=== PATIENT | female | born 1990 | race Hispanic/Latino ===

== ENCOUNTER 2019-12-28 02:12 | Inpatient (IN) | payer OTHER, SELFPAY ==
[2019-12-28 02:50] LABS: Absolute Lymphocytes (CBC) 1.6 K/uL (0.7-4.9); Basophils % 0.9 % (0-1.3); Hematocrit 38.8 % (36.0-45.0); Lymphocytes % 17.1 % (15.3-44.8); MPV 8.6 fL (7.6-11.3); RBC Red Blood Cell Count 4.44 M/uL (3.86-4.86)
[2019-12-28 02:59] LABS: Urine Blood NEGATIVE (NEG); Urine Glucose NEGATIVE (NEG); Urine Protein TRACE (NEG); Urine Specific Gravity 1.025 (1.005-1.030); Urine pH 8.5 (5.0-7.0)
[2019-12-28] MEDS ORDERED: MORPHINE 4 MG/ML SYR ONE ×2 (03:01→04:50)
[2019-12-28] MEDS ORDERED: ONDANSETRON 4 MG/2 ML VIAL ONE ×2 (03:02→09:01)
[2019-12-28 03:32] LABS: ALT/SGPT 23 U/L (12-78); AST/SGOT 18 U/L (15-37); Albumin 4.1 g/dL (3.4-5.0); Alkaline Phosphatase 100 U/L (45-117); BUN Blood Urea Nitrogen 8 mg/dL (7-18); Bicarbonate 23 mmol/L (21-32); Bilirubin Direct < 0.1 mg/dL (0-0.2); Bilirubin Total 0.2 mg/dL (0.2-1.0); Glucose Level 103 mg/dL (74-106); Lipase 87 U/L (73-393); Potassium 3.3 mmol/L (3.5-5.1); Protein, Total 8.2 g/dL (6.4-8.2); Sodium Level 142 mmol/L (136-145)
[2019-12-28] MEDS ORDERED: NA CHLORIDE 0.9% 2,000 ML ONE (04:01)
[2019-12-28] MEDS ORDERED: CIPROFLOXACIN 400mg IV 400 MG/200 ML BAG IV ONE (04:01)
[2019-12-28] MEDS ORDERED: METRONIDAZOLE 500mg IVPB 500 MG/100 ML BAG IV ONE (04:02)
--- NOTE | 2019-12-28 04:42 | ER ---
Nurse's Notes [facility] Name: Carla Watt Age: 29 yrs Sex: Female : 1990 Arrival Date: 12/28/2019 Time: 02:14 Bed 17 Private MD: Diagnosis: Umbilical hernia with obstruction, without gangrene;Abdominal tenderness;Other intestinal obstruction-MECHANICAL sbo, secondary incarcerated umbilical hernia Presentation: 12/27 02:26 Chief complaint: Patient states: she was out at a [employer] party tonight and started having bb abdominal pain which is getting worse denies nausea, vomiting, or diarrhea. Coronavirus screen: At this time, the client does not indicate any symptoms associated with coronavirus-19. Ebola Screen: No symptoms or risks identified at this time. Initial Sepsis Screen: Does the patient meet any 2 criteria? No. Patient's initial sepsis screen is negative. Does the patient have a suspected source of infection? No. Patient's initial sepsis screen is negative. Risk Assessment: Do you want to hurt yourself or someone else? Patient reports no desire to harm self or others. Onset of symptoms was December 28, 2019. 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 - Social history:: Smoking status: unknown Patient uses alcohol, occasionally. - Family history:: not pertinent. Screenin:30 Abuse screen: Denies threats or abuse. Denies injuries from another. Nutritional wh screening: No deficits noted. Tuberculosis screening: No symptoms or risk factors identified. Fall Risk None identified. Assessment: 02:30 General: Appears in no apparent distress. uncomfortable, Behavior is calm, cooperative, wh appropriate for age. Pain: Complains of pain in umbilical area Pain does not radiate. Pain currently is 8 out of 10 on a pain scale. Pain began 3 hours ago. Is episodic. Neuro: Level of Consciousness is awake, alert, obeys commands, Oriented to person, place, time, situation, Appropriate for age. Cardiovascular: Heart tones S1 S2. Respiratory: Airway is patent Respiratory effort is even, unlabored, Respiratory pattern is regular, symmetrical, Breath sounds are clear bilaterally. GI: Abdomen is flat, Bowel sounds present X 4 quads. Abd is soft Abdomen is tender to palpation in umbilical area Mass noted in umbilical area. : No signs and/or symptoms were reported regarding the genitourinary system. EENT: No signs and/or symptoms were reported regarding the EENT system. Derm: Skin is intact, is healthy with good turgor, Skin is pink, warm \T\ dry. normal. Musculoskeletal: Circulation, motion, and sensation intact. 04:00 Reassessment: Patient appears in no apparent distress at this time. No changes from previously documented assessment. Patient and/or family updated on plan of care and expected duration. Pain level reassessed. Patient is alert, oriented x 3, equal unlabored respirations, skin warm/dry/pink. 04:35 Reassessment: MD at bedside trying to manipulate hernia back with no success, POC explained need for admission. 05:17 Reassessment: Patient appears in no apparent distress at this time. Patient and/or family updated on plan of care and expected duration. Pain level reassessed. Patient is alert, oriented x 3, equal unlabored respirations, skin warm/dry/pink. Vital Signs: 02:26 BP 156 / 93; Pulse 105; Resp 22 S; Temp 98.1(O); Pulse Ox 100% on R/A; Weight 84.82 kg bb (R); Height 5 ft. 4 in. (162.56 cm) (R); Pain 9/10; 03:30 BP 111 / 74; Pulse 89; Resp 16; Pulse Ox 98% on R/A; wh 04:21 BP 117 / 73; Pulse 87; Resp 18; Pulse Ox 98% on R/A; wh 05:17 BP 127 / 85; Pulse 85; Resp 18; Pulse Ox 98% on R/A; 02:26 Body Mass Index 32.10 (84.82 kg, 162.56 cm) ED Course: 02:14 Patient arrived in ED. am2 02:27 Elver Jiang MD is Attending Physician. [facility] 02:28 Triage completed. 02:28 James Otoole is Primary Nurse. 02:29 Arm band placed on Patient placed in an exam room, on a stretcher, on pulse oximetry. bb 02:45 Patient has correct armband on for positive identification. Placed in gown. Bed in low wh position. Call light in reach. Side rails up X 1. Pulse ox on. NIBP on. 02:50 Inserted saline lock: 20 gauge in right antecubital area, using aseptic technique. Blood collected. 04:38 CT Abd/Pelvis - IV Contrast Only In Process Unspecified. EDMS 04:40 David Asif MD is Hospitalizing Provider. [facility] 05:16 No provider procedures requiring assistance completed. Patient admitted, IV remains in place. Administered Medications: 02:58 Drug: morphine 2 mg {Note: RASS 0.} Route: IVP; Site: right antecubital; 03:00 Drug: Zofran (Ondansetron) 4 mg Route: IVP; Site: right antecubital; 03:52 Follow up: Response: No adverse reaction; Nausea is decreased 03:31 Drug: morphine 2 mg {Note: RASS 0.} Route: IVP; Site: right antecubital; 03:52 Follow up: Response: No adverse reaction; Pain is decreased; RASS: Alert and Calm (0) 04:16 Drug: Flagyl 500 mg Volume: 100 ml; Route: IVPB; Rate: 200 ml/hr; Infused Over: 30 wh mins; Site: right antecubital; 04:50 Follow up: Response: No adverse reaction; IV Status: Completed infusion 04:16 Drug: NS 0.9% 1000 ml Route: IV; Rate: 1 bolus; Site: right antecubital; 05:08 Follow up: Response: No adverse reaction; IV Status: Completed infusion 04:35 Drug: morphine 4 mg {Note: RASS 0.} Route: IVP; Site: right antecubital; 05:07 Follow up: Response: No adverse reaction; Pain is decreased; RASS: Alert and Calm (0) 04:43 Drug: Cipro 400 mg Volume: 200 ml; Route: IVPB; Infused Over: 60 mins; Site: right antecubital; 05:08 Follow up: Response: No adverse reaction; IV Status: Infusion continued upon admission 05:08 Drug: NS 0.9% 1000 ml Route: IV; Rate: 125 ml/hr; Site: right antecubital; 05:08 Follow up: IV Status: Infusion continued upon admission Outcome: 04:41 Decision to Hospitalize by Provider. marianela 05:16 Admitted to Med/surg accompanied by tech, via stretcher, room 229, with chart, Report called to Helen Warren RN 05:16 Condition: stable 05:16 Instructed on the need for admit. 05:23 Patient left the ED. Signatures: Dispatcher [employer] Elver Guerrier MD MD cha Ballard, Brenda, RN RN Danika Bojorquez Winsy
--- NOTE | 2019-12-28 04:42 | EDPHYS ---
Physician Documentation [facility] Name: Carla Watt Age: 29 yrs Sex: Female : 1990 Arrival Date: 12/28/2019 Time: 02:14 Bed 17 Private MD: ED Physician Elver Jiang HPI: 12/27 03:36 This 29 yrs old Female presents to ER via Ambulatory with complaints of marianela Abdominal Pain. 03:36 The patient presents with abdominal pain in the periumbilical area. Onset: The marianela symptoms/episode began/occurred just prior to arrival. The symptoms do not radiate. Associated signs and symptoms: none. The symptoms are described as burning, constant. Modifying factors: The symptoms are alleviated by nothing, the symptoms are aggravated by movement. Severity of pain: At its worst the pain was moderate in the emergency department the pain is unchanged. The patient has not experienced similar symptoms in the past. 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 - Social history:: Smoking status: unknown Patient uses alcohol, occasionally. - Family history:: not pertinent. ROS: 03:36 Constitutional: Negative for fever, chills, and weight loss, Eyes: Negative for injury, marianela pain, redness, and discharge, ENT: Negative for injury, pain, and discharge, Neck: Negative for injury, pain, and swelling, Cardiovascular: Negative for chest pain, palpitations, and edema, Respiratory: Negative for shortness of breath, cough, wheezing, and pleuritic chest pain, Back: Negative for injury and pain, : Negative for injury, bleeding, discharge, and swelling, MS/Extremity: Negative for injury and deformity, Skin: Negative for injury, rash, and discoloration, Neuro: Negative for headache, weakness, numbness, tingling, and seizure, Psych: Negative for depression, anxiety, suicide ideation, homicidal ideation, and hallucinations, Allergy/Immunology: Negative for hives, rash, and allergies, Endocrine: Negative for neck swelling, polydipsia, polyuria, polyphagia, and marked weight changes, Hematologic/Lymphatic: Negative for swollen nodes, abnormal bleeding, and unusual bruising. 03:36 Abdomen/GI: Positive for abdominal pain, of the umbilical area. Exam: 03:36 Constitutional: This is a well developed, well nourished patient who is awake, alert, marianela and in no acute distress. Head/Face: Normocephalic, atraumatic. Eyes: Pupils equal round and reactive to light, extra-ocular motions intact. Lids and lashes normal. Conjunctiva and sclera are non-icteric and not injected. Cornea within normal limits. Periorbital areas with no swelling, redness, or edema. ENT: Nares patent. No nasal discharge, no septal abnormalities noted. Tympanic membranes are normal and external auditory canals are clear. Oropharynx with no redness, swelling, or masses, exudates, or evidence of obstruction, uvula midline. Mucous membranes moist. Neck: Trachea midline, no thyromegaly or masses palpated, and no cervical lymphadenopathy. Supple, full range of motion without nuchal rigidity, or vertebral point tenderness. No Meningismus. Chest/axilla: Normal chest wall appearance and motion. Nontender with no deformity. No lesions are appreciated. Cardiovascular: Regular rate and rhythm with a normal S1 and S2. No gallops, murmurs, or rubs. Normal PMI, no JVD. No pulse deficits. Respiratory: Lungs have equal breath sounds bilaterally, clear to auscultation and percussion. No rales, rhonchi or wheezes noted. No increased work of breathing, no retractions or nasal flaring. Back: No spinal tenderness. No costovertebral tenderness. Full range of motion. Female : Normal external genitalia. Skin: Warm, dry with normal turgor. Normal color with no rashes, no lesions, and no evidence of cellulitis. MS/ Extremity: Pulses equal, no cyanosis. Neurovascular intact. Full, normal range of motion. Neuro: Awake and alert, GCS 15, oriented to person, place, time, and situation. Cranial nerves II-XII grossly intact. Motor strength 5/5 in all extremities. Sensory grossly intact. Cerebellar exam normal. Normal gait. Psych: Awake, alert, with orientation to person, place and time. Behavior, mood, and affect are within normal limits. 03:36 Abdomen/GI: Inspection: abdomen appears normal, Bowel sounds: normal, Palpation: moderate abdominal tenderness, in the umbilical area, Liver: no appreciated palpable abnormalities, Hernia: noted in the umbilical area, incarceration, that is moderate, tenderness, that is moderate, that is severe, bowel sounds are appreciated on auscultation. Vital Signs: 02:26 BP 156 / 93; Pulse 105; Resp 22 S; Temp 98.1(O); Pulse Ox 100% on R/A; Weight 84.82 kg bb (R); Height 5 ft. 4 in. (162.56 cm) (R); Pain 9/10; 03:30 BP 111 / 74; Pulse 89; Resp 16; Pulse Ox 98% on R/A; wh 04:21 BP 117 / 73; Pulse 87; Resp 18; Pulse Ox 98% on R/A; wh 05:17 BP 127 / 85; Pulse 85; Resp 18; Pulse Ox 98% on R/A; wh 02:26 Body Mass Index 32.10 (84.82 kg, 162.56 cm) MDM: 02:27 Patient medically screened. [facility] 03:38 Differential diagnosis: non-specific abd pain, incarcerated hernia. Data reviewed: [facility] vital signs, nurses notes, lab test result(s), radiologic studies, CT scan. 04:49 Data interpreted: digital imaging technician: rate is 87 beats/min, rhythm is regular, Pulse marianela oximetry: on room air is 98 %. Test interpretation: by ED physician or midlevel provider: ct abd/pelvis. ED course: exp[lained labs and ct to patient, moe benites, will admit and plan on OR THIS MORNING. 05:16 ED course: two attemps to reduce hernia, no success, moe benites, or at 9am, patsy bear informed. 12/27 02:28 Order name: Basic Metabolic Panel; Complete Time: 03:35 [facility] 12/27 02:28 Order name: CBC with Diff; Complete Time: 03:35 [facility] 12/27 02:28 Order name: Hepatic Function; Complete Time: 03:35 [facility] 12/27 02:29 Order name: Lipase; Complete Time: 03:35 [facility] 12/27 02:55 Order name: Urine Dipstick--Ancillary (enter results) [facility] 12/27 02:55 Order name: Urine --Ancillary (enter results) [facility] 12/27 02:29 Order name: CT Abd/Pelvis - IV Contrast Only [facility] 12/27 02:55 Order name: Urine Dipstick-Ancillary; Complete Time: 03:35 [facility] 12/27 02:56 Order name: Urine --Ancillary; Complete Time: 03:35 [facility] 12/27 04:50 Order name: COVID-19 12/27 05:22 Order name: CORONAVIRUS [facility] 12/27 02:29 Order name: IV Saline Lock; Complete Time: 03:00 [facility] 12/27 02:29 Order name: Labs collected and sent; Complete Time: 03:00 [facility] 12/27 02:29 Order name: Urine Dipstick-Ancillary (obtain specimen); Complete Time: 02:55 [facility] 12/27 02:29 Order name: Urine Test (obtain specimen); Complete Time: 02:55 [facility] Administered Medications: 02:58 Drug: morphine 2 mg {Note: RASS 0.} Route: IVP; Site: right antecubital; 03:00 Drug: Zofran (Ondansetron) 4 mg Route: IVP; Site: right antecubital; 03:52 Follow up: Response: No adverse reaction; Nausea is decreased 03:31 Drug: morphine 2 mg {Note: RASS 0.} Route: IVP; Site: right antecubital; 03:52 Follow up: Response: No adverse reaction; Pain is decreased; RASS: Alert and Calm (0) 04:16 Drug: Flagyl 500 mg Volume: 100 ml; Route: IVPB; Rate: 200 ml/hr; Infused Over: 30 wh mins; Site: right antecubital; 04:50 Follow up: Response: No adverse reaction; IV Status: Completed infusion 04:16 Drug: NS 0.9% 1000 ml Route: IV; Rate: 1 bolus; Site: right antecubital; 05:08 Follow up: Response: No adverse reaction; IV Status: Completed infusion 04:35 Drug: morphine 4 mg {Note: RASS 0.} Route: IVP; Site: right antecubital; 05:07 Follow up: Response: No adverse reaction; Pain is decreased; RASS: Alert and Calm (0) 04:43 Drug: Cipro 400 mg Volume: 200 ml; Route: IVPB; Infused Over: 60 mins; Site: right antecubital; 05:08 Follow up: Response: No adverse reaction; IV Status: Infusion continued upon admission 05:08 Drug: NS 0.9% 1000 ml Route: IV; Rate: 125 ml/hr; Site: right antecubital; 05:08 Follow up: IV Status: Infusion continued upon admission Disposition: 12/28/19 04:41 Hospitalization ordered by David Benites for Observation. Preliminary diagnosis are Umbilical hernia with obstruction, without gangrene, Abdominal tenderness, Other intestinal obstruction - MECHANICAL sbo, secondary incarcerated umbilical hernia. - Bed requested for Telemetry/MedSurg (observation). - Status is Observation. - Condition is Fair. - Problem is new. - Symptoms are unchanged. Signatures: Dispatcher [employer] EDElver Diggs MD MD cha Ballard, Brenda, RN RN Patsy Beauchamp RN RN James Wilhelm Corrections: (The following items were deleted from the chart) 05:06 04:41 Hospitalization Ordered by David Benites MD for Observation. Preliminary diagnosis cg is Umbilical hernia with obstruction, without gangrene; Abdominal tenderness. Bed requested for Telemetry/MedSurg (observation). Status is Observation. Condition is Fair. Problem is new. Symptoms are unchanged. marianela 05:16 05:06 12/28/2019 04:41 Hospitalization Ordered by David Benites MD for Observation. [facility] Preliminary diagnosis is Umbilical hernia with obstruction, without gangrene; Abdominal tenderness. Bed requested for Telemetry/MedSurg (observation). Status is Observation. Condition is Fair. Problem is new. Symptoms are unchanged. cg 05:23 05:16 12/28/2019 04:41 Hospitalization Ordered by David Benites MD for Observation. Preliminary diagnosis is Umbilical hernia with obstruction, without gangrene; Abdominal tenderness; Other intestinal obstruction - MECHANICAL sbo, secondary incarcerated umbilical hernia. Bed requested for Telemetry/MedSurg (observation). Status is Observation. Condition is Fair. Problem is new. Symptoms are unchanged. marianela
[2019-12-28 05:46] VITALS: BMI 31.8
[2019-12-28] MEDS ORDERED: ACETAMINOPHEN 500 MG TAB PO PRN (06:03)
[2019-12-28] MEDS ORDERED: MORPHINE 4 MG/ML SYR IV PRN (06:03)
[2019-12-28] MEDS ORDERED: ONDANSETRON 4 MG/2 ML VIAL IV PRN ×2 (06:03→10:49)
[2019-12-28] MEDS: D5.45NS W/KCL 20MEQ 20 MEQ/1,000 ML BAG IV SCH ×3 (06:45→22:03)
[2019-12-28] MEDS: FAMOTIDINE 20 MG/2 ML VIAL IV SCH ×2 (08:08→20:10)
[2019-12-28] MEDS ORDERED: Ringers Lactate 1,000 ML IV ONE (08:44)
[2019-12-28] MEDS ORDERED: SUCCINYLCHOLINE 20 MG/ML (10 ML) IV ONE (09:11)
[2019-12-28] MEDS ORDERED: propofoL 200 MG/20 ML VIAL IV ONE (09:13)
[2019-12-28] MEDS ORDERED: FENTANYL CITR 100 MCG/2 ML ONE ×2 (09:13→09:44)
[2019-12-28] MEDS ORDERED: MIDAZOLAM HCL 2 MG/2 ML INJ ONE (09:13)
[2019-12-28] MEDS ORDERED: ROCURONIUM 50 MG/5 ML VIAL IV ONE (09:40)
--- NOTE | 2019-12-28 10:18 | P.OP ---
Steel Rigger: Fernando COULTER Preoperative diagnosis: Incarcerated umbilical hernia Postoperative diagnosis: same Primary procedure: Lap Repair Incarcerated Umbilical Hernia Anesthesia: General Estimated blood loss: min Specimen: Hernia sac Findings: as above Complications: None Transferred to: Recovery Room Condition: Good
[2019-12-28] MEDS ORDERED: GLYCOPYRROLATE 0.2 MG/ML SYR ONE (10:25)
[2019-12-28] MEDS ORDERED: NEOSTIGMINE 1 MG/ML -5 ML ONE (10:25)
[2019-12-28] MEDS ORDERED: HYDROMORPHONE HCL 1 MG/ML INJ IV PRN ×2 (10:49→11:08)
[2019-12-28] MEDS ORDERED: KETOROLAC 30 MG/ML INJ ONE (11:06)
[2019-12-28] MEDS ORDERED: PROMETHAZINE INJ 25 MG/ML AMP ONE (11:19)
[2019-12-28] MEDS: METRONIDAZOLE 500mg IVPB 500 MG/100 ML BAG IV SCH ×3 (11:55→23:49)
[2019-12-28] MEDS ORDERED: INFLUENZA VACCINE (for 3y+) 0.5 ML DOSE IMVAC ONE (12:00)
--- NOTE | 2019-12-28 12:36 | PREOPHP ---
Date of Admission: 12/28/2019 Reason For Admission: Abdominal pain. History Of Present Illness: The patient is a 29-year-old female, who awoke at midnight with acute on set of periumbilical pain. Had 1 episode of vomiting. Has nausea and no diarrhea or constipation. No blood in her stool. Last bowel movement yesterday, has not passed any gas since the pain started. Never had this kind of pain before. No sore throat, runny nose, cough, headaches, or dizziness. N o chest pain. No fever or chills. No dysuria or hematuria. Review of Systems: Otherwise unremarkable. Past Medical History: Asthma. Past Surgical History: Negative. Allergies: NO ALLERGIES. Social History: The patient does not smoke. Drinks occasionally. Family History: Noncontributory. Physical Examination: Vital Signs: Stable. She is currently afebrile. General: She is awake, alert, and oriented x3. Head and Neck: Cranial nerves 2 through 12 are grossly within normal limits. No neck masses. No JV D. Throat clear. Neck is supple. Chest: Clear. Heart: S1, S2. Abdomen: Soft. Mild distention. Hypoactive bowel sounds. In the supraumbilical region, there is a mass approximately 4 x 6 cm tense, not reducible. There is no erythema. Tender. Extremity: Adequately perfused. Nontender. Neuro: Nonfocal. Laboratory Data: Reviewed. Her potassium is slightly low that was replaced, otherwise is unremarkab le. Her H and H, WBC, and platelets are within normal limits. There is slight left shift. CT of th e abdomen and pelvis reviewed which is consistent with mechanical small bowel obstruction with proxim al dilatation and distal collapse of the small bowel, which is incarcerated into the hernia. Assessment: Incarcerated umbilical hernia. Plan: Admit n.p.o., IV fluid, IV antibiotics and to the OR for laparoscopic-assisted repair of incar cerated umbilical hernia. The patient and understand the risks, benefits, alternatives and a greed to procedure. /MODL Voice ID: [id number]
--- NOTE | 2019-12-28 14:11 | OP ---
Date of Procedure: 12/28/2019 Surgeon: David Asif MD Mounter Clarinets: MARYLIN Reddy. Preoperative Diagnosis: Incarcerated umbilical hernia. Postoperative Diagnosis: Incarcerated umbilical hernia. Procedure: Laparoscopic repair of incarcerated umbilical hernia. Estimated Blood Loss: Minimal. Specimen: Hernia sac. Findings: As above. Anesthesia: General. Complications: None. Disposition: The patient tolerated the procedure in stable condition, taken to Recovery in good gene ral condition. Description Of Procedure: The patient was brought to the OR and placed in supine position. General anesthesia begun. The patient was prepped and draped in usual sterile fashion. Marcaine 0.5% was in filtrated locally. A 15 blade was used to make a 1 cm left upper quadrant incision. Subcutaneous ti ssue was divided. Fascia was identified and divided. #1 Vicryl stay suture was placed. Peritoneal cavity was entered with sharp and blunt dissection. 12 mm trocar was placed into the peritoneal cavi ty under direct vision. Pneumoperitoneum was established. Then, 5 mm trocar was placed in the left lower quadrant. Laparoscopy revealed incarcerated small bowel into and a small defect just above the umbilicus with some falciform ligament and fat associated with it incarcerated well. The falciform ligament was divided with gentle pressure. The small bowel was reduced from the hernia into the pal toneal cavity was examined carefully. There was proximal dilatation and distal collapse which improv ed immediately upon reduction of the hernia. There was some bruising of the serosa but there was no ecchymoses no evidence of any vascular compromise of the bowel that was present. It was healthy and had motility. Subsequently, a 4 cm incision was made above the umbilicus. Subcutaneous tissue was d ivided. Fascia was identified. A large hernia sac with fat was present as well which was excised do wn to the fascia. Defect remained was approximately 2.5 cm in diameter. Ventralex medium sized plug was placed into the peritoneal cavity and then #1 PDS was used to close the fascia and tied the mesh to the fascia. The pneumoperitoneum was reestablished and the mesh was secured to the peritoneal garcia rface with tacker. A complete coverage with 3 cm borders around the hernia defect was easily accompl ished and then all trocars were removed under direct vision after there was no evidence of bowel inju ry or bleeding noted. Subsequently, stay sutures were tied to each other to reapproximate the fascia l defect. Subcutaneous wounds were irrigated. Bleeding controlled with cautery and then 2-0 chromic and 3-0 chromic were used to approximate the subcutaneous tissue and closed the skin. Sterile dress ing was applied. The patient was awakened and taken to Recovery in good general condition. NEHEMIAS/KEIRA Voice ID: [id number] Report ID: [id number]
[2019-12-28] MEDS: CIPROFLOXACIN 400mg IV 400 MG/200 ML BAG IV SCH (16:15)
[2019-12-28] MEDS: HYDROCODONE/APAP 7.5/325 MG TAB PO PRN ×2 (17:30→23:49)
[2019-12-29] MEDS: D5.45NS W/KCL 20MEQ 20 MEQ/1,000 ML BAG IV SCH (04:56)
[2019-12-29] MEDS: CIPROFLOXACIN 400mg IV 400 MG/200 ML BAG IV SCH (04:56)
[2019-12-29] MEDS: METRONIDAZOLE 500mg IVPB 500 MG/100 ML BAG IV SCH (06:09)
[2019-12-29 06:36] LABS: Absolute Lymphocytes (CBC) 1.4 K/uL (0.7-4.9); Basophils % 0.7 % (0-1.3); Hematocrit 34.5 % (36.0-45.0); Lymphocytes % 21.2 % (15.3-44.8); MPV 8.9 fL (7.6-11.3); RBC Red Blood Cell Count 3.88 M/uL (3.86-4.86)
[2019-12-29 06:56] LABS: BUN Blood Urea Nitrogen 3 mg/dL (7-18); Bicarbonate 27 mmol/L (21-32); Glucose Level 106 mg/dL (74-106); Magnesium 1.8 mg/dL (1.8-2.4); Potassium 3.5 mmol/L (3.5-5.1); Sodium Level 141 mmol/L (136-145)
[2019-12-29] MEDS: FAMOTIDINE 20 MG/2 ML VIAL IV SCH (08:28)
[2019-12-29] MEDS: HYDROCODONE/APAP 7.5/325 MG TAB PO PRN (08:29)
[2019-12-29] MEDS ORDERED: MAGNESIUM SULFATE 1 gm IVPB 1 GM/100 ML BAG IV ONE (09:00)
[2019-12-29] MEDS ORDERED: POTASSIUM CL SA 10 MEQ TAB PO ONE (09:00)
[2019-12-29 09:47] VITALS: O2SAT 97
--- NOTE | 2019-12-29 11:13 | DS ---
Date of Discharge: 12/29/2019 Admitting Diagnosis: Incarcerated umbilical hernia. Discharge Diagnosis: Incarcerated umbilical hernia. Procedure Performed: Laparoscopic repair of incarcerated umbilical hernia. Hospital Course: The patient is a 29-year-old female, who underwent the aforementioned procedure. P ostoperatively, she is tolerating diet, ambulating, pain controlled with p.o. pain medication, afebri le. The patient will be discharged to home. Disposition: Home. Condition: Stable. Discharge Instructions: Resume home medications and diet. Activity as tolerated. No heavy lifting. Remove outer dressing in a.m. and shower. Keep wound clean and dry. Keep Steri-Strips on at all t imes. Follow up in my office 1-2 weeks. Call for appointment. Tylenol No.3 one tablet p.o. q.4 p.r .n. and incentive spirometry as ordered. /MODL Voice ID: [id number] Report ID: [id number]
[2019-12-29 12:30] VITALS: BP 108/57; TEMP 97.4
--- NOTE | 2019-12-31 12:17 | RAD REPORT ---
EXAM DESCRIPTION: CT - Abdomen Pelvis W Contrast - 12/28/2019 6:47 am ADDENDUM #1 Urgent finding reported to Dr. Jiang at 12/28/2019 5:20 AM CDT Electronically signed by: Lorne Mackey 12/28/2019 6:22 AM CDT End of Addendum EXAM DESCRIPTION: CT ABDOMEN AND PELVIS WITH CONTRAST CLINICAL HISTORY: ABD PAIN COMPARISON: None Available. TECHNIQUE: CT of the abdomen and pelvis performed following IV administration of iodinated contras t. FINDINGS: Lung Bases: The visualized lung bases are clear. Bones: No destructive bone lesions identified. Abdomen: Liver: The liver has normal size and density. No intrahepatic biliary dilatation. Gallbladder: No calcified gallstones. Spleen, Pancreas, and Adrenal Glands: The spleen, pancreas, and adrenal glands are unremarkable. Kidneys: No hydronephrosis or obstructing calculus. Vasculature: The aorta and IVC have normal caliber and position. The portal vein is patent. The pro ximal visceral and renal arteries are patent. Stomach: The stomach and duodenum have normal course. Other: No free intraperitoneal air. No free fluid or lymphadenopathy. Pelvis: Bladder: Urinary bladder is unremarkable. Bowel: Dilated loops of proximal small bowel. Dilated loops in an umbilical hernia. Loops of bowel distal to the umbilical hernia are decompressed. Appendix: Normal appendix. Pelvis: Uterus is not enlarged. IMPRESSION: 1. Mechanical small bowel obstruction on the basis an incarcerated umbilical hernia cont aining dilated loop of small bowel. Transition to decompressed small bowel at the exit of the umbilic al hernia. This exam was performed according to our departmental dose-optimization program, which includes autom ated exposure control, adjustment of the mA and/or kV according to patient size and/or use of iterati ve reconstruction technique. Electronically signed by: Lorne Mackey 12/28/2019 5:09 AM CDT Due to temporary technical issues with the PACS/Fluency reporting system, reports are being signed by the in house radiologist without review as a courtesy to ensure prompt reporting. The interpreting r adiologist is fully responsible for the content of the report.
== END 2019-12-29 11:54 | disposition home or self-care (01) | DRG 355 ==
LOC: ER 02:12 → OBSVTOIN 04:42 → ERHOLD 04:42 → 2ND 05:17
PROVIDERS: ADMIT Surgery; ATTEND Surgery
PROC: 0WUF0JZ Supplement Abdominal Wall with Synthetic Substitute, Open Approach (ICD-10-PCS; principal; 2019-12-28 09:00)
DX: K42.0 Umbilical hernia with obstruction, without gangrene (principal); Z20.828 Contact with and (suspected) exposure to other viral communicable diseases
CPT/HCPCS: 36415; 74177; 80048; 80076; 81003; 81025; 83690; 83735; 84100; 84132; 85025; 88302; 94010; 96365; 96375; 99285; J0330; J0744; J2250; J2405; J2550; J2704; J2710; J3010; J3475; J7030; J7120; Q9967; U0003

== ENCOUNTER 2022-05-16 21:15 | Emergency (ER) | payer OTHER ==
--- OUTSIDE RECORDS SUMMARY | 2022-05-16 21:19 | XMS REPORT | Continuity of Care Document ---
:1990 Author Organization [facility] t Address [address] [place] [address] Care Team Providers Name Role Phone PCP, PATIENT DOES NOT HAVE A Primary Care Physician UnavailTHERESA De La Cruz Attending Clinician Unavailable 2, Adc Lab Attending Clinician Unavailable Theresa Trujillo PA-C Attending Clinician Doctor Unassigned, [place] Attending Clinician Unavailable Cecilia Vanessa MD Attending Clinician CECILIA VANESSA Attending Clinician Unavailable Payers Payer Name Policy Type Policy Number Effective Date Expiration Date S ource Problems Condition Condition Condition Status Onset Resolution Last Treating Co mments Source Name Details Category Date Date Treatment Clinician Date ASCUS with ASCUS with Disease Active U nivers positive positive 3-14 ity of [place] 00 [place] cervical cervical Branch Obesity Obesity Disease Active Univers (BMI (BMI 2-04 ity of 30-39.9) 30-39.9) 00:00: [place] [address] Medical Branch Allergies, Adverse Reactions, Alerts Allergy Allergy Status Severity Reaction(s) Onset Inactive Treating Comm ents Source Name Type Date Date Clinician NO KNOWN Drug Active Univers ALLERGIE Class ity of [facility] Social History Social Habit Start Date Stop Date Quantity Comments Source History SDOH University o f Alcohol Frequency [place] [facility] History SDWV University o f Alcohol Std [place] [facility] History SDWV University o f Alcohol Binge [place] [facility] Exposure to 2022-04-24 2022-05-04 Not sure University SARS-CoV-2 00:00:00 08:46:00 [facility] (event) [place] Tobacco use and 2022-05-04 2022-05-04 Smokeless tobacco Un iversity of exposure 00:00:00 00:00:00 non-user [facility] Alcohol intake 2022-05-04 2022-05-04 Current drinker Unive rsity of 00:00:00 00:00:00 of alcohol [facility] (finding) [place] Alcohol Comment 2020-04-30 2020-04-30 Socially Universit y of 00:00:00 00:00:00 [facility] Sex Ass[birth year] At [birth year] Universit y of 00:00:00 00:00:00 [facility] Smoking Status Start Date Stop Date Source Never smoked tobacco [facility] Medications Ordered Filled Start Stop Current Ordering Indication Dosage Frequency Signature Comments Components Source Medication Medication Date Date Medication? Clinician (SIG) Name Name No known No Univers medications 4-06 ity of 17:03: [address] No known No Univers medications 4-06 ity of 17:03: [address] No known No Univers medications 4-06 ity of 17:03: [address] No known No Univers medications 4-06 ity of 17:03: [address] Vital Signs Vital Name Observation Time Observation Value Comments Source Systolic blood 2022-05-04 14:59:00 122 mm[Hg] Univer sity of pressure [facility] Diastolic blood 2022-05-04 14:59:00 75 mm[Hg] Unive rsity of pressure [facility] Heart rate 2022-05-04 14:59:00 69 /min [facility] Body temperature 2022-05-04 14:59:00 36.94 Neli [facility] Res[facility] rate 2022-05-04 14:59:00 18 /min [facility] Body height 2022-05-04 14:59:00 162.6 cm [facility] Body weight 2022-05-04 14:59:00 70.761 kg [facility] BMI 2022-05-04 14:59:00 26.78 kg/m2 [facility] Systolic blood 2021-06-30 21:08:00 128 mm[Hg] Univer sity of pressure [facility] Diastolic blood 2021-06-30 21:08:00 86 mm[Hg] Unive rsity of pressure [facility] Heart rate 2021-06-30 21:08:00 80 /min [facility] Body temperature 2021-06-30 21:08:00 36.83 Neli [facility] Respiratory rate 2021-06-30 21:08:00 18 /min [facility] Body height 2021-06-30 21:08:00 162.6 cm [facility] Body weight 2021-06-30 21:08:00 73.936 kg [facility] BMI 2021-06-30 21:08:00 27.98 kg/m2 [facility] Procedures Procedure Date / Time Performed Performing Clinician [facility] ASSIGNMENT OF BENEFITS 2022-05-04 14:47:02 Doctor Unassigned, No [facility] Branch DISCLOSURE AND 2021-06-30 05:01:00 Doctor Unassigned, No [facility] CONSENT, MEDICAL AND Name [facility] SURGICAL PROCEDURES POCT TEST 2021-06-30 00:00:00 Cecilia Vanessa [facility] DISCLOSURE AND 2021-06-07 05:01:00 Doctor Unassigned, No [facility] CONSENT, MEDICAL AND Name [facility] SURGICAL PROCEDURES Encounters Start End Encounter Admission Attending Care Care Encounter Source Date/Time Date/Time Type Type Clinicians Facility Department ID 2022-05-04 2022-05-04 Busgirl 2, Adc Lab [facility] [id number] [facility] 10:15:00 10:30:00 Visit Theresa Trujillo [id number] [place] [id number] Christopher LAN [id number] [address] 2022-05-04 2022-05-04 Outpatient R [facility] [id number] [facility] 09:00:00 09:51:47 THERESA yin [facility] 2022-05-04 2022-05-04 Office Lauren [facility] [id number] Univers 09:00:00 09:51:47 Visit Theresa LATOSHA [id number] i ty [id number] [phone] [address] 2022-05-04 2022-05-04 Orders Doctor BUCK [id number] Univers 00:00:00 00:00:00 Only Unassigned, HAO [id number] ity of [facility] [id number] Ko as [id number] [address] 2021-07-06 2021-07-06 Telephone Cecilia Vanessa [facility] [id number] Univers 00:00:00 00:00:00 Gordon REINA [id number] i ty [id number] [id number] [address] 2021-06-30 2021-06-30 Office Otf [facility] [id number] Univers 15:30:00 16:50:08 Visit Gordon REINA [id number] i ty [id number] [id number] [address] 2021-06-30 2021-06-30 Outpatient R [facility] [id number] Univers 15:30:00 16:50:08 ity [facility] 2021-06-30 2021-06-30 Outpatient R OTF [facility] [id number] Univers 15:30:00 15:30:00 ity [facility] 2021-06-30 2021-06-30 Outpatient Lana VANESSA [facility] [id number] Univers 15:30:00 15:30:00 ity [facility] 2021-06-30 2021-06-30 Orders Doctor BUCK [id number] Univers 00:00:00 00:00:00 Only Unassigned, HAO [id number] ity of [place] [facility] [id number] Ko as [phone] [address] 2021-06-07 2021-06-07 Outpatient R OTF [facility] [id number] Univers 08:00:00 08:29:42 ity of [facility] 2021-06-07 2021-06-07 Office Otf [facility] [id number] Univers 08:00:00 08:29:42 Visit Gordon REINA [id number] i ty [facility] 4.2.7.2.[place] [id number] [address] 2021-06-07 2021-06-07 Outpatient R OTF [facility] [id number] Univers 08:00:00 08:29:42 ity of [facility] 2021-06-07 2021-06-07 Orders Doctor BUCK [id number] Univers 00:00:00 00:00:00 Only Unassigned, HAO [id number] ity of [place] [facility] 4.2.7.2.686 Ko as [id number] [address] 2021-05-04 2021-05-04 Joaquin Trujillo [facility] [id number] Univers 00:00:00 00:00:00 Management Theresa REINA [id number] ity of [facility] [id number] [id number] [address] 2021-05-04 2021-05-04 Case ABBE Trujillo [id number] Univers 00:00:00 00:00:00 Management Theresa PEDIATRIC [id number] [id number] [id number] [address] CLINIC 2021-05-03 2021-05-03 Outpatient R [facility] [id number] Univers 10:00:00 10:00:00 THERESA [facility] 2021-05-03 2021-05-03 Busgirl 2, Adc Lab [facility] [id number] Univers 10:00:00 10:00:00 Visit Theresa Trujillo [id number] ity [id number] [phone] [facility] [address] [facility] 2021-05-03 2021-05-03 Office Lauren [facility] [id number] Univers 09:00:00 09:42:25 Visit Theresa REINA [id number] i ty [id number] [id number] [address] 2021-05-03 2021-05-03 Outpatient R [facility] [id number] Univers 09:00:00 [facility]42:[facility] 2021-05-03 2021-05-03 Orders Doctor HEBER [id number] Univers 00:00:00 00:00:00 Only Unassigned, HAO 350.1.13.10 [facility] [id number] Ko as [id number] [address] 2020-12-07 2020-12-07 [facility] [id number] Univers 15:02:21 15:27:48 Visit Theresa [place] 350.1.13.10 i ty of [place] [id number] [address] 2020-12-07 2020-12-07 Outpatient Lana [facility]ILLO [facility] [id number] Univers 15:00:00 15:00:00 [facility] 2020-06-18 2020-06-18 Outpatient CECILIA [facility]AGONER [facility] [id number] Univers 13:30:00 13:30:00 itkaylee [facility] 2020-04-30 2020-04-30 Outpatient R [facility] [id number] Univers 09:30:00 09:30:00 THERESA yin [facility] Results Test Description Test Time Test Comments Results Result Comments Source POCT TEST 2021-06-30 21:07:00 Test Item Value Reference Range Interpretation Comme nts POCT PREG (test code = 1605) Negative On board controls acceptable with C Line (test code = 3574) Yes POCT PREG LOT # (test code = 3575) POCT PREG TEST DATE (test code = 3576) [facility]
[2022-05-16 21:52] LABS: Urine Blood Trace-intact (Negative); Urine Glucose Trace (Negative); Urine Protein 2+ (Negative); Urine pH 6.5 (5.0-7.0)
[2022-05-16 22:10] LABS: Urine Bacteria None Seen /HPF (<20); Urine Bilirubin 2+ (Negative); Urine Blood Negative (Negative); Urine Clarity Clear (Clear); Urine Color Dark-Yellow (Yellow); Urine Crystals Unidentified Few /HPF (None Seen); Urine Glucose NEGATIVE (Negative); Urine Mucus 1+ /HPF (None Seen); Urine Protein TRACE (Negative); Urine Urobilinogen 3+ (Normal); Urine WBC Clump Rare /HPF (None Seen)
[2022-05-16] MEDS ORDERED: CEFTRIAXONE 1000 MG/VIAL ONE (22:26)
[2022-05-16] MEDS ORDERED: LIDOCAINE 1% MPF 2 ML AMPULE ONE (22:26)
[2022-05-16] MEDS ORDERED: DOXYCYCLINE 100 MG CAP PO ONE (22:26)
--- NOTE | 2022-05-16 22:39 | EDPHYS ---
Physician Documentation [facility] Name: Carla Watt Age: 31 yrs Sex: Female : 1990 Arrival Date: 05/16/2022 Time: 21:21 Bed IW1 Private MD: ED Physician Seferino Dubon HPI: 05/16 22:36 This 31 yrs old Female presents to ER via Ambulatory with complaints of Pain snw With Urination, Abdominal Pain. 22:36 The patient presents with a possible exposure to a sexually transmitted disease, snw urinary symptoms. Onset: The symptoms/episode began/occurred acutely. Associated signs and symptoms: Pertinent positives: dysuria. Severity of symptoms: At their worst the symptoms were mild, in the emergency department the symptoms have improved. The patient is sexually active, new partner. It is unknown whether or not the patient has had similar symptoms in the past. The patient has not recently seen a physician. Historical: - Allergies: 21:32 No Known Allergies; as6 - PMHx: 21:32 None; as6 - PSHx: 21:32 None; as6 - Immunization history:: Client reports having NOT received the Covid vaccine. - Social history:: Smoking status: Patient denies any tobacco usage or history of. ROS: 22:35 Constitutional: Negative for fever, chills, and weight loss, Eyes: Negative for injury, snw pain, redness, and discharge, ENT: Negative for injury, pain, and discharge, Neck: Negative for injury, pain, and swelling, Cardiovascular: Negative for chest pain, palpitations, and edema, Respiratory: Negative for shortness of breath, cough, wheezing, and pleuritic chest pain, Abdomen/GI: Negative for abdominal pain, nausea, vomiting, diarrhea, and constipation, Back: Negative for injury and pain, MS/Extremity: Negative for injury and deformity, Skin: Negative for injury, rash, and discoloration, Neuro: Negative for headache, weakness, numbness, tingling, and seizure, Psych: Negative for depression, anxiety, suicide ideation, homicidal ideation, and hallucinations. 22:35 : Positive for urinary symptoms, burning with urination, foul smelling urine. Exam: 22:35 Constitutional: This is a well developed, well nourished patient who is awake, alert, snw and in no acute distress. Head/Face: Normocephalic, atraumatic. Eyes: Pupils equal round and reactive to light, extra-ocular motions intact. Lids and lashes normal. Conjunctiva and sclera are non-icteric and not injected. Cornea within normal limits. Periorbital areas with no swelling, redness, or edema. ENT: Nares patent. No nasal discharge, no septal abnormalities noted. Tympanic membranes are normal and external auditory canals are clear. Oropharynx with no redness, swelling, or masses, exudates, or evidence of obstruction, uvula midline. Mucous membranes moist. Neck: Trachea midline, no thyromegaly or masses palpated, and no cervical lymphadenopathy. Supple, full range of motion without nuchal rigidity, or vertebral point tenderness. No Meningismus. Chest/axilla: Normal chest wall appearance and motion. Nontender with no deformity. No lesions are appreciated. Cardiovascular: Regular rate and rhythm with a normal S1 and S2. No gallops, murmurs, or rubs. Normal PMI, no JVD. No pulse deficits. Respiratory: Lungs have equal breath sounds bilaterally, clear to auscultation and percussion. No rales, rhonchi or wheezes noted. No increased work of breathing, no retractions or nasal flaring. Abdomen/GI: Soft, non-tender, with normal bowel sounds. No distension or tympany. No guarding or rebound. No evidence of tenderness throughout. Back: No spinal tenderness. No costovertebral tenderness. Full range of motion. Skin: Warm, dry with normal turgor. Normal color with no rashes, no lesions, and no evidence of cellulitis. MS/ Extremity: Pulses equal, no cyanosis. Neurovascular intact. Full, normal range of motion. Neuro: Awake and alert, GCS 15, oriented to person, place, time, and situation. Cranial nerves II-XII grossly intact. Motor strength 5/5 in all extremities. Sensory grossly intact. Cerebellar exam normal. Normal gait. Psych: Awake, alert, with orientation to person, place and time. Behavior, mood, and affect are within normal limits. Vital Signs: 21:31 BP 144 / 78; Pulse 95; Resp 18 S; Temp 98.8(O); Pulse Ox 98% on R/A; Weight 72.57 kg as6 (R); Height 5 ft. 6 in. (167.64 cm) (R); Pain 0/10; 21:31 Body Mass Index 25.82 (72.57 kg, 167.64 cm) as6 MDM: 21:38 Patient medically screened. snw 22:36 Differential diagnosis: bacterial infection, UTI. Data reviewed: vital signs, nurses snw notes. Counseling: I had a detailed discussion with the patient and/or guardian regarding: the historical points, exam findings, and any diagnostic results supporting the discharge/admit diagnosis, lab results, the need for outpatient follow up, for definitive care, to return to the emergency department if symptoms worsen or persist or if there are any questions or concerns that arise at home. Special discussion: I have referred the patient to see his PCP for further evaluation of high blood pressure. Based on the history and exam findings, there is no indication for further emergent testing or inpatient evaluation. I discussed with the patient/guardian the need to see the primary care provider for further evaluation of the symptoms. 05/16 21:33 Order name: Urinalysis W/Microscopic as6 05/16 21:51 Order name: Urine Culture 2 05/16 21:51 Order name: Urine --Ancillary (enter results) 2 05/16 21:52 Order name: Urine Dipstick-Ancillary; Complete Time: 22:01 [facility] 05/16 22:11 Order name: Urinalysis W/Microscopic; Complete Time: 22:15 EDPR 05/16 22:23 Order name: Urine --Ancillary; Complete Time: 22:26 EDPR 05/16 21:33 Order name: Urine Dipstick-Ancillary (obtain specimen); Complete Time: 21:51 as6 05/16 21:51 Order name: Urine Test (obtain specimen); Complete Time: 21:52 mw2 Administered Medications: 22:43 Drug: Rocephin (cefTRIAXone) 1 grams Route: IM; Site: right ventrogluteal; as6 22:48 Follow up: Response: No adverse reaction as6 22:43 Drug: Doxycycline 100 mg Route: PO; as6 22:48 Follow up: Response: No adverse reaction as6 Disposition: 05/17 03:10 Co-signature as Attending Physician, Seferino Dubon MD I reviewed the patient's care rt provided by the Advanced Practice Provider and agree with the diagnosis and treatment plan. Disposition Summary: 05/16/22 22:38 Discharge Ordered Location: Home snw Condition: Stable snw Diagnosis - Dysuria snw - UTI/ Urinary tract infection, site not specified snw Followup: snw - With: Emergency Department - When: As needed - Reason: Worsening of condition Followup: snw - With: Private Physician - When: 2 - 3 days - Reason: Recheck today's complaints, Continuance of care, Re-evaluation by your physician Discharge Instructions: - Discharge Summary Sheet snw - Hypertension, Adult snw - Urinary Tract Infection, Adult snw - Rehydration, Adult snw - Form - Blood Pressure Record Sheet snw - Preventing Sexually Transmitted Infections, Adult snw Forms: - Medication Reconciliation Form snw - Thank You Letter snw - Antibiotic Education snw - Prescription Opioid Use snw Prescriptions: - Doxycycline Hyclate 100 mg Oral Tablet - take 1 tablet by ORAL route every 12 hours; 20 tablet; Refills: 0, Product snw Selection Permitted Signatures: Dispatcher [employer] EDFiona Borges, MID LEVEL PRACTITIONER-C MID LEVEL PRACTITIONER-Csnw Aurea Oliver mw2 Jackson Brown, ARTURO RN as6 Seferino Dubon MD MD rt
--- NOTE | 2022-05-16 22:39 | ER ---
Nurse's Notes [facility] Name: Carla Watt Age: 31 yrs Sex: Female : 1990 Arrival Date: 05/16/2022 Time: 21:21 Bed IW1 Private MD: Diagnosis: Dysuria;UTI/ Urinary tract infection, site not specified Presentation: 05/16 21:31 Chief complaint: Patient states: "yesterday I noticed my pee smelt different and then as6 today it started to burn when I pee. I has just got a different sexual partner". Coronavirus screen: At this time, the client does not indicate any symptoms associated with coronavirus-19. Ebola Screen: No symptoms or risks identified at this time. Initial Sepsis Screen: Does the patient meet any 2 criteria? No. Patient's initial sepsis screen is negative. Does the patient have a suspected source of infection? No. Patient's initial sepsis screen is negative. Risk Assessment: Do you want to hurt yourself or someone else? Patient reports no desire to harm self or others. Onset of symptoms was May 15, 2022. 21:31 Method Of Arrival: Ambulatory as6 21:31 Acuity: YFN 4 as6 Triage Assessment: 21:30 General: Appears in no apparent distress. Behavior is calm, cooperative. Pain: Denies as6 pain. GI:. : Parent/caregiver report the patient having burning with urination. Historical: - Allergies: 21:32 No Known Allergies; as6 - PMHx: 21:32 None; as6 - PSHx: 21:32 None; as6 - Immunization history:: Client reports having NOT received the Covid vaccine. - Social history:: Smoking status: Patient denies any tobacco usage or history of. Screenin:43 [facility] ED Fall Risk Assessment (Adult) Score/Fall Risk Level 0 - 2 = Low Risk. Abuse as6 screen: Denies threats or abuse. Denies injuries from another. Nutritional screening: No deficits noted. Tuberculosis screening: No symptoms or risk factors identified. Vital Signs: 21:31 BP 144 / 78; Pulse 95; Resp 18 S; Temp 98.8(O); Pulse Ox 98% on R/A; Weight 72.57 kg as6 (R); Height 5 ft. 6 in. (167.64 cm) (R); Pain 0/10; 21:31 Body Mass Index 25.82 (72.57 kg, 167.64 cm) as6 ED Course: 21:21 Patient arrived in ED. ja2 21:32 Triage completed. as6 21:32 Arm band placed on. as6 21:34 Fiona Bernard FNP-C [facility] snw 21:34 Seferino Dubon MD is Attending Physician. snw 22:47 Patient has correct armband on for positive identification. as6 22:47 No provider procedures requiring assistance completed. Patient did not have IV access as6 during this emergency room visit. Administered Medications: 22:43 Drug: Rocephin (cefTRIAXone) 1 grams Route: IM; Site: right ventrogluteal; as6 22:48 Follow up: Response: No adverse reaction as6 22:43 Drug: Doxycycline 100 mg Route: PO; as6 22:48 Follow up: Response: No adverse reaction as6 Medication: 22:48 VIS not applicable for this client. as6 Outcome: 22:38 Discharge ordered by . snw 22:47 Discharged to home ambulatory. as6 22:47 Condition: stable 22:47 Discharge instructions given to patient, Instructed on discharge instructions, follow up and referral plans. medication usage, safe sex practices, Demonstrated understanding of instructions, follow-up care, medications, Prescriptions given X 1. 22:48 Patient left the ED. as6 Signatures: Fiona Bernard FNP-C FNP-[facility] Jackson Brown, RN RN as6
[2022-05-16 23:41] VITALS: BP 144/78; TEMP 98.8; O2SAT 98
== END 2022-05-16 22:48 | disposition home or self-care (01) ==
LOC: ER 21:15
DX: N39.0 Urinary tract infection, site not specified (principal)
CPT/HCPCS: 81001; 81003; 81025; 87086; 87088; 96372; 99283

== ENCOUNTER 2022-09-21 21:24 | Emergency (ER) | payer OTHER ==
--- OUTSIDE RECORDS SUMMARY | 2022-09-21 21:29 | XMS REPORT | Continuity of Care Document ---
:[address] [facility] t Address [address] [facility] [address] [place] [id number] Care Team Providers Name Role Phone PCP, PATIENT DOES NOT HAVE A Primary Care Physician UnavailTHERESA De La Cruz Attending Clinician Unavailable WILMER KEYS Attending Clinician Unavailable WILMER KEYS Attending Clinician Unavailable 2, [facility] Attending Clinician Unavailable Theresa Trujillo PA-C Attending Clinician Doctor Unassigned, [place] Attending Clinician Unavailable Cecilia Vanessa MD Attending Clinician CECILIA VANESSA Attending Clinician Unavailable Payers Payer Name Policy Type Policy Number Effective Date Expiration Date [facility] [id number] 2020 [facility] [place] STAR 00:00:00 Problems Condition Condition Condition Status Onset Resolution Last Treating Co mments Source Name Details Category Date Date Treatment Clinician Date ASCUS with ASCUS with Disease Active U nivers positive positive 3-14 [place] of [place] 00 Medical cervical cervical Branch Obesity Obesity Disease Active Univers (BMI (BMI 2-04 ity of 30-39.9) 30-39.9) 00:00: [place] 00 Medical Branch Allergies, Adverse Reactions, Alerts Allergy Allergy Status Severity Reaction(s) Onset Inactive Treating Comm ents Source Name Type Date Date Clinician NO KNOWN Drug Active Univers ALLERGIE Class ity of S [place] [facility] Social History Social Habit Start Date Stop Date Quantity Comments Source History SDKY University o f Alcohol Binge [place] [facility] History [facility] University o f Alcohol Frequency [place] M [facility] History [facility] University o f Alcohol Std [facility] Drinks Branch Exposure to 2022-04-24 2022-05-04 Not sure University SARS-CoV-2 00:00:00 08:46:00 [facility] (event) [place] Tobacco use and 2022-05-04 2022-05-04 Smokeless tobacco Un iversity of exposure 00:00:00 00:00:00 non-user [facility] Alcohol intake 2022-05-04 2022-05-04 Current drinker Unive rsity of 00:00:00 00:00:00 of alcohol [facility] (finding) [place] Alcohol Comment 2020-04-30 2020-04-30 Socially Universit y of 00:00:00 00:00:00 [facility] Sex Ass[birth year] Universit y of 00:00:00 00:00:00 [facility] Smoking Status Start Date Stop Date Source Never smoked tobacco [facility] Medications Ordered Filled Start Stop Current Ordering Indication Dosage Frequency Signature Comments Components Source Medication Medication Date Date Medication? Clinician (SIG) Name Name No known No Univers medications 4-06 ity of 17:03: [address] No known No Univers medications 4-06 ity of 17:03: [address] No known No Univers medications 4-06 ity of 17:03: [address] No known No Univers medications 4-06 ity of 17:03: [address] Vital Signs Vital Name Observation Time Observation Value Comments Source Systolic blood 2022-05-04 14:59:00 122 mm[Hg] Univer sity of pressure [facility] Diastolic blood 2022-05-04 14:59:00 75 mm[Hg] Unive rsity of pressure [facility] Heart rate 2022-05-04 14:59:00 69 /min [facility] Body temperature 2022-05-04 14:59:00 36.94 [facility]eli [facility] Respiratory rate 2022-05-04 14:59:00 18 /min Univ ersity [facility] Body height 2022-05-04 14:59:00 162.6 cm [facility] Body weight 2022-05-04 14:59:00 70.761 kg [facility] BMI 2022-05-04 14:59:00 26.78 kg/m2 [facility] Systolic blood 2021-06-30 21:08:00 128 mm[Hg] Univer sity of pressure [facility] Diastolic blood 2021-06-30 21:08:00 86 mm[Hg] Unive rsity [facility] Heart rate 2021-06-30 21:08:00 80 /min [facility] Body temperature 2021-06-30 21:08:00 36.83 Neli [facility] Respiratory rate 2021-06-30 21:08:00 18 /min [facility] Body height 2021-06-30 21:08:00 162.6 cm [facility] Body weight 2021-06-30 21:08:00 73.936 kg [facility] BMI 2021-06-30 21:08:00 27.98 kg/m2 [facility] Procedures Procedure Date / Time Performed Performing Clinician [facility] e ASSIGNMENT OF BENEFITS 2022-05-04 14:47:02 Doctor Unassigned, No [facility] DISCLOSURE AND 2021-06-30 05:01:00 Doctor Unassigned, No [facility] CONSENT, MEDICAL AND Name [facility] SURGICAL PROCEDURES POCT TEST 2021-06-30 00:00:00 Cecilia Vanessa [facility] DISCLOSURE AND 2021-06-07 05:01:00 Doctor Unassigned, No [facility] CONSENT, MEDICAL AND Name [facility] SURGICAL PROCEDURES Encounters Start End Encounter Admission Attending Care Care Encounter Source Date/Time Date/Time Type Type Clinicians Facility Department ID 2023-05-08 2023-05-08 Outpatient R WILMER KEYS [facility] B [id number] Univers 09:00:00 09:00:00 WILMER KEYS [facility] 2022-05-04 2022-05-04 Dough Cutter 2, Adc Lab [facility] [id number] [facility] 10:15:00 10:30:00 Visit Theresa Trujillo [id number] ity [facility] [id number] [place] [phone] S[place] dical [facility] [address] [facility] 2022-05-04 2022-05-04 Outpatient R LAUREN [facility] [id number] Univers 09:00:00 09:51:47 THERESA ity [facility] 2022-05-04 2022-05-04 Office Lauren IDSHEREEN [id number] Univers 09:00:00 09:51:47 Visit Theresa LATOSHA [id number] i ty of [facility] [id number] [phone] Sd dical [address] 2022-05-04 2022-05-04 Orders Doctor HEBER [id number] Univers 00:00:00 00:00:00 Only Unassigned, HAO [id number] ity of [place] [facility] [id number] Ko as [phone] [address] 2021-07-06 2021-07-06 Telephone [facility] [id number] Univers 00:00:00 00:00:00 Gordon PATEL [id number] i ty of [place] [id number] [phone] S[place] dical [address] 2021-06-30 2021-06-30 Office Cecilia Vanessa [facility] [id number] Univers 15:30:00 16:50:08 Visit Gordon PATEL [id number] i ty of [place] [id number] [id number] Sd dic[address] 2021-06-30 2021-06-30 Outpatient R CECILIA VANESSA [facility] [id number] Univers 15:30:00 16:50:08 ity of [facility] 2021-06-30 2021-06-30 Outpatient R CECILIA VANESSA [facility] [id number] Univers 15:30:00 15:30:00 ity of [facility] 2021-06-30 2021-06-30 Outpatient R OTF [facility] [id number] Univers 15:30:00 15:30:00 ity of [facility] 2021-06-30 2021-06-30 Orders Doctor HEBER [id number] Univers 00:00:00 00:00:00 Only Unassigned, HAO [id number] ity of [facility] [id number] [place] [phone] [address] 2021-06-07 2021-06-07 Outpatient R OTF CECILIA [facility] [id number] Univers 08:00:00 08:29:42 ity [facility] 2021-06-07 2021-06-07 Office Otf [facility] [id number] Univers 08:00:00 08:29:42 Visit Gordon PATEL [id number] i ty of [place] [id number] [phone] Sd dic[address] 2021-06-07 2021-06-07 Outpatient R OTF [facility] [id number] Univers 08:00:00 08:29:42 ity of [facility] 2021-06-07 2021-06-07 Orders Doctor HEBER [id number] Univers 00:00:00 00:00:00 Only Unassigned, AHO [id number] ity of [facility] [id number] [place] [phone] [address] 2021-05-04 2021-05-04 Joaquin Trujillo [facility] [id number] Univers 00:00:00 00:00:00 Management Theresa PATEL [id number] ity of [place] [id number] [phone] Sd dical NAL [address] [place] [address] 2021-05-04 2021-05-04 Case ABBE Trujillo [id number] Univers 00:00:00 00:00:00 Management Theresa PEDIATRIC [id number] [id number] [phone] [facility] PRIMARY [address] [facility] 2021-05-03 2021-05-03 Outpatient R LAUREN [facility] [id number] Univers 10:00:00 10:00:00 THERESA ity [facility] 2021-05-03 2021-05-03 Dough Cutter 2, Adc Lab [facility] [id number] Univers 10:00:00 10:00:00 Visit Theresa Trujillo [id number] ity of [place] [id number] [phone] [facility] 2021-05-03 2021-05-03 Office Lauren [facility] [id number] Univers 09:00:00 09:42:25 Visit Theresa PATEL [id number] i ty of [place] [id number] [phone] [facility] [address] [facility] 2021-05-03 2021-05-03 Outpatient R LAUREN [facility] [id number] Univers 09:00:00 09:42:25 THERESA yin [facility] 2021-05-03 2021-05-03 Orders Doctor BUCK [id number] Univers 00:00:00 00:00:00 Only Unassigned, HAO [id number] ity of [place] [facility] [id number] Ko as [phone] [facility] [address] 2020-12-07 2020-12-07 Office Lauren [facility] [id number] Univers 15:02:21 15:27:48 Visit Theresa Patel [id number] i ty of [id number] [phone] [facility] 2020-12-07 2020-12-07 [facility] [id number] Univers 15:00:00 15:00:00 [facility] 2020-06-18 2020-06-18 Outpatient CECILIA WAGONER [facility] [id number] Univers 13:30:00 13:30:00 [facility] 2020-04-30 2020-04-30 Outpatient Lana TRUJILLO [facility] [id number] [facility] 09:30:00 09:30:00 [facility] Results Test Description Test Time Test Comments Results Result Comments Source POCT TEST 2021-06-30 21:07:00 Test Item Value Reference Range Interpretation Comme nts POCT PREG (test code = 1605) Negative On board controls acceptable with C Line (test code = 3574) Yes POCT PREG LOT # (test code = 3575) POCT PREG TEST DATE (test code = 3576) [facility]
--- NOTE | 2022-09-21 21:46 | ER ---
Nurse's Notes [facility] Name: Carla Watt Age: 31 yrs Sex: Female : 1990 Arrival Date: 09/21/2022 Time: 21:24 Bed 12 Private MD: Diagnosis: Allergic contact dermatitis, unspecified cause Presentation: 09/21 21:38 Chief complaint: Patient states: "I've had this rash for 2 weeks now. It started out as mb9 a line but not its spreading from my left arm to my right leg, arm, and hand. It's very itchy". Coronavirus screen: Vaccine status: Patient reports being unvaccinated. Ebola Screen: No symptoms or risks identified at this time. Onset: The symptoms/episode began/occurred 2 week(s) ago. Anaphylaxis evaluation, no signs or symptoms of anaphylaxis were noted. Initial Sepsis Screen: Does the patient meet any 2 criteria? No. Patient's initial sepsis screen is negative. Does the patient have a suspected source of infection? No. Patient's initial sepsis screen is negative. Risk Assessment: Do you want to hurt yourself or someone else? Patient reports no desire to harm self or others. Onset of symptoms was 2022. 21:38 Method Of Arrival: Ambulatory mb9 21:38 Acuity: YFN 4 mb9 Triage Assessment: 21:39 General: Appears in no apparent distress. Behavior is calm, cooperative. Pain: Denies mb9 pain. Neuro: Higgins Agitation-Sedation Scale (RASS): 0 - Alert and Calm Level of Consciousness is awake, alert, obeys commands, Oriented to person, place, time, situation, Appropriate for age. Respiratory: Airway is patent Respiratory effort is even, unlabored, Respiratory pattern is regular, symmetrical, Breath sounds are clear bilaterally. Denies shortness of breath. Derm: Rash noted that is itchy, red, raised, on right hand, right arm and left arm. Musculoskeletal: Range of motion: intact in all extremities. 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 - Social history:: Smoking status: Patient denies any tobacco usage or history of. - Family history:: not pertinent. Screenin:40 [facility] ED Fall Risk Assessment (Adult) History of falling in the last 3 months, mb9 including since admission No falls in past 3 months (0 pts) Confusion or Disorientation No (0 pts) Intoxicated or Sedated No (0 pts) Impaired Gait No (0 pts) Mobility Assist Device Used No (0 pt) Altered Elimination No (0 pt) Score/Fall Risk Level 0 - 2 = Low Risk Oriented to surroundings, Maintained a safe environment, Educated pt \\T\\ family on fall prevention, incl call for assistance when getting out of bed. Abuse screen: Denies threats or abuse. Nutritional screening: No deficits noted. Tuberculosis screening: No symptoms or risk factors identified. Assessment: 21:40 Reassessment: see triage assessment. mb9 Vital Signs: 21:38 BP 146 / 90; Pulse 74; Resp 16; Temp 98.1; Pulse Ox 100% on R/A; Weight 74.84 kg; mb9 Height 5 ft. 6 in. ; 21:38 Body Mass Index 26.63 (74.84 kg, 167.64 cm) mb9 ED Course: 21:28 Patient arrived in ED. ja2 21:34 Alisha Edwards, RN is Primary Nurse. mb9 21:38 Arm band placed on. mb9 21:39 Triage completed. mb9 21:41 Bed in low position. Call light in reach. Side rails up X 1. Client placed on mb9 continuous cardiac and pulse oximetry monitoring. NIBP monitoring applied. 21:41 No provider procedures requiring assistance completed. mb9 21:43 Sampson Marrero MD is Attending Physician. sp4 21:53 Patient did not have IV access during this emergency room visit. mb9 Administered Medications: 21:52 Drug: predniSONE PO 60 mg Route: PO; mb9 21:52 Drug: diphenhydrAMINE PO 25 mg Route: PO; mb9 Outcome: 21:46 Discharge ordered by . sp4 21:53 Discharged to home ambulatory. mb9 21:53 Condition: stable 21:53 Discharge instructions given to patient, Instructed on discharge instructions, follow up and referral plans. Demonstrated understanding of instructions, follow-up care, medications, Prescriptions given X 1. 21:53 Patient left the ED. mb9 Signatures: Candy Coronel Mary Beth, RN RN mb9 Sampson Marrero MD MD sp4
--- NOTE | 2022-09-21 21:46 | EDPHYS ---
Physician Documentation [facility] Name: Carla Watt Age: 31 yrs Sex: Female : 1990 Arrival Date: 09/21/2022 Time: 21:24 Bed 12 Private MD: ED Physician Sampson Marrero HPI: 09/21 21:43 This 31 yrs old Female presents to ER via Ambulatory with complaints of Hives, sp4 Rash. 21:44 31-year-old female presents with pruritic rash for the past 3 weeks.. sp4 09/22 20:08 Rashes in linear distribution to bilateral upper extremities also right lower thigh. 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 - Social history:: Smoking status: Patient denies any tobacco usage or history of. - Family history:: not pertinent. ROS: 09/22 20:08 Constitutional: Negative for fever, chills, and weight loss, Eyes: Negative for injury, sp4 pain, redness, and discharge, ENT: Negative for injury, pain, and discharge, Neck: Negative for injury, pain, and swelling, Cardiovascular: Negative for chest pain, palpitations, and edema, Respiratory: Negative for shortness of breath, cough, wheezing, and pleuritic chest pain, Abdomen/GI: Negative for abdominal pain, nausea, vomiting, diarrhea, and constipation, Skin: Negative for injury, and discoloration, positive for pruritic rash. All other systems are negative. Exam: 20:08 Constitutional: This is a well developed, well nourished patient who is awake, alert, sp4 and in no acute distress. Head/Face: Normocephalic, atraumatic. Eyes: Pupils equal round and reactive to light, extra-ocular motions intact. Lids and lashes normal. Conjunctiva and sclera are not injected. Cornea within normal limits. Periorbital areas with no swelling, redness, or edema. ENT: Nares patent. No nasal discharge, no septal abnormalities noted. Tympanic membranes are normal and external auditory canals are clear. Oropharynx with no redness, swelling, or masses, exudates, or evidence of obstruction, uvula midline. Mucous membranes moist. Neck: Trachea midline, no thyromegaly or masses palpated, and no cervical lymphadenopathy. Supple, full range of motion without nuchal rigidity, or vertebral point tenderness. Chest/axilla: Normal chest wall appearance and motion. Nontender with no deformity. No lesions are appreciated. Cardiovascular: Regular rate and rhythm with a normal S1 and S2. No gallops, murmurs, or rubs. Normal PMI, no JVD. No pulse deficits. Respiratory: Lungs have equal breath sounds bilaterally, clear to auscultation and percussion. No rales, rhonchi or wheezes noted. No increased work of breathing, no retractions or nasal flaring. Abdomen/GI: Soft, non-tender, with normal bowel sounds. No distension or tympany. No guarding or rebound. No evidence of tenderness throughout. Back: No spinal tenderness. No costovertebral tenderness. Skin: Warm, dry with normal turgor. Normal color with no lesions, and no evidence of cellulitis. Bilateral upper extremity rash in linear distribution consistent with acute contact dermatitis also rash to right lower thigh. MS/ Extremity: Pulses equal, no cyanosis. Neurovascular intact. Full, normal range of motion. Neuro: Awake and alert, GCS 15, oriented to person, place, time, and situation. Cranial nerves II-XII grossly intact. Motor strength 5/5 in all extremities. Sensory grossly intact. Psych: Awake, alert, with orientation to person, place and time. Behavior, mood, and affect are within normal limits Vital Signs: 09/21 21:38 BP 146 / 90; Pulse 74; Resp 16; Temp 98.1; Pulse Ox 100% on R/A; Weight 74.84 kg; mb9 Height 5 ft. 6 in. ; 21:38 Body Mass Index 26.63 (74.84 kg, 167.64 cm) mb9 MDM: 21:44 Differential diagnosis: impetigo, varicella, allergic reaction, parasite infection. sp4 Data reviewed: vital signs, nurses notes. ED course: . 21:46 Patient medically screened. sp4 09/22 20:08 ED course: Exam is consistent with allergic dermatitis patient will be given prednisone sp4 p.o. and also prescription for prednisone for the next 5 days. Benadryl OTC advised as needed for pruritus. Administered Medications: 09/21 21:52 Drug: predniSONE PO 60 mg Route: PO; mb9 21:52 Drug: diphenhydrAMINE PO 25 mg Route: PO; mb9 Disposition Summary: 09/21/22 21:46 Discharge Ordered Location: Home sp4 Problem: new sp4 Symptoms: have improved sp4 Condition: Stable sp4 Diagnosis - Allergic contact dermatitis, unspecified cause sp4 Followup: sp4 - With: Private Physician - When: 5 - 6 days - Reason: Recheck today's complaints Discharge Instructions: - Discharge Summary Sheet sp4 - Contact Dermatitis sp4 Forms: - [email or web address] sp4 Prescriptions: - Prednisone 20 mg Oral Tablet - take 2 tablets by ORAL route once daily for 5 days; 10 tablet; Refills: 0, sp4 Product Selection Permitted Signatures: Alisha Edwards RN RN mb9 Sampson Marrero MD MD sp4
[2022-09-21] MEDS ORDERED: predniSONE 20 MG TAB ONE (21:58)
[2022-09-21] MEDS ORDERED: DIPHENHYDRAMINE 25 MG TAB/CAP ONE (21:58)
[2022-09-21 22:15] VITALS: BP 146/90; TEMP 98.1; O2SAT 100
== END 2022-09-21 21:53 | disposition home or self-care (01) ==
LOC: ER 21:24
DX: L23.9 Allergic contact dermatitis, unspecified cause (principal)
CPT/HCPCS: 99283; J7512

== ENCOUNTER 2024-07-03 18:47 | Inpatient (IN) | payer OTHER, SELFPAY ==
--- OUTSIDE RECORDS SUMMARY | 2024-07-03 18:50 | XMS REPORT | Continuity of Care Document ---
Author Name Unknown Address [address] [place] [address] [facility] Address [address] [facility] [address] [place] [address] Care Team Providers Care Carpet Sewer Name Role Phone PCP, PATIENT DOES NOT HAVE A Primary Care Physic marcia JARAD Arrington Attending Clinician Unavailable Bin Jarad SURESH Attending Clinician [phone] CIARRA FALLON Attending Clinician CIARRA Monet Attending Clinician THERESA Wilson Attending Clinician Unavailable WILMER KEYS Attending Clinician UnavailWILMER Lozano Attending Clinician Unavailjoyce judge June Attending Clinician UnavailTheresa Sparks PA-C Attending Clinician [phone] Lab, Ang - Db Attending Clinician Unavailable 2, Adc Lab Attending Clinician Unavailable Doctor Unassigned, [place] Attending Clinician U Cecilia Rowland MD Attending Clinician [phone] CECILIA VANESSA Attending Clinician Unavailable Payers Payer Name Policy Type Policy Number Effective Date Expirati on Date Source W-RMP [id number] 2024 00:00:00 [employer] [facility] [place] [id number] 2020 00:00:00 Problems Condition Name Condition Details Condition Category Status Onset Date Resolution Date Last Treatment Date Treating Clinician Comments Source ASCUS with positive high risk HPV cervical ASCUS with positive high risk HPV cervical Disease Active 06-07 00:00: 00 [facility] Obesity (BMI 30-39.9) Obesity (BMI 30-39.9) Disease Resolve d 2-04 00:00: 00 2024-02-19 00:00:00 2024-02-19 09:09:58 [facility] LGSIL on Pap smear of cervix LGSIL on Pap smear of cervix Disease Resolve d 06-18 00:00: 00 2021-06-07 00:00:00 2021-06-07 09:23:49 [facility] Allergies, Adverse Reactions, Alerts Allergy Name Allergy Type Status Severity Reaction(s) Onset Date Inactive Date Treating Clinician Comments Source NO KNOWN ALLERGIE S Drug Class Active [facility] Social History Social Habit Start Date Stop Date Quantity Comments Source Gender identity [facility] Sexual orientation U [facility] History SDOH Alcohol Frequency [facility] History SDOH Alcohol Std Drinks [facility] History SDOH Alcohol Binge [facility] Tobacco use and exposure 2024-02-19 00:00:00 2024-02-19 00:00:00 Smokeless tobacco non-user [facility] History of Social function 2024-02-19 00:00:00 2024-02-19 00:00:00 [facility] Alcoholic beverage intake 2024-02-19 00:00:00 2024-02-19 00:00:00 Current drinker of alcohol (finding) [facility] Exposure to SARS-CoV-2 (event) 2022-04-24 00:00:00 2022-05-04 08:46:00 Not sure [facility] Alcohol intake 2022-05-04 00:00:00 2022-05-04 00:00:00 Current drinker of alcohol (finding) [facility] Alcohol Comment 2020-04-30 00:00:00 2020-04-30 00:00:00 Socially [facility] Sex assigned at 1990 00:00:00 1990 00:00:00 [facility] Smoking Status Start Date Stop Date Source Never smoked tobacco [facility] Medications Ordered Medication Name Filled Medication Name Start Date Stop Date Current Medication? Ordering Clinician Indication Dosage Frequency Signature (SIG) Comments Components Source metroNIDAZO LE 500 mg tablet 2023-03 00:00: 00 Yes [id number] 500mg Take 1 tablet by mouth every 12 (twelve) hours. [facility] No known medications 06-30 17:03: 16 No [facility] Vital Signs Vital Name Observation Time Observation Value Comments S ource Systolic blood pressure 2024-02-19 14:04:00 112 mm[Hg] [facility] Diastolic blood pressure 2024-02-19 14:04:00 71 mm[Hg] [facility] Heart rate 2024-02-19 14:04:00 67 /min [facility] Body temperature 2024-02-19 14:04:00 36.78 Neli [facility] Respiratory rate 2024-02-19 14:04:00 17 /min [facility] Body height 2024-02-19 14:04:00 162.6 cm [facility] Body weight 2024-02-19 14:04:00 73.437 kg [facility] BMI 2024-02-19 14:04:00 27.79 kg/m2 [facility] Systolic blood pressure 2022-05-04 14:59:00 122 mm[Hg] [facility] Diastolic blood pressure 2022-05-04 14:59:00 75 mm[Hg] [facility] Heart rate 2022-05-04 14:59:00 69 /min [facility] Body temperature 2022-05-04 14:59:00 36.94 Neli [facility] Respiratory rate 2022-05-04 14:59:00 18 /min [facility] Body height 2022-05-04 14:59:00 162.6 cm [facility] Body weight 2022-05-04 14:59:00 70.761 kg [facility] BMI 2022-05-04 14:59:00 26.78 kg/m2 [facility] Systolic blood pressure 2021-06-30 21:08:00 128 mm[Hg] [place] [facility] Diastolic blood pressure 2021-06-30 21:08:00 86 mm[Hg] [facility] Heart rate 2021-06-30 21:08:00 80 /min [facility] Body temperature 2021-06-30 21:08:00 36.83 Neli [facility] Respiratory rate 2021-06-30 21:08:00 18 /min [facility] Body height 2021-06-30 21:08:00 162.6 cm [facility] Body weight 2021-06-30 21:08:00 73.936 kg [facility] BMI 2021-06-30 21:08:00 27.98 kg/m2 [facility] Procedures Procedure Date / Time Performed Performing Clinicia n Source ASSIGNMENT OF BENEFITS 2022-05-04 14:47:02 Docto r Unassigned, [place] [facility] DISCLOSURE AND CONSENT, MEDICAL AND SURGICAL PROCEDURES 2021-06-30 05:01:00 Doctor Unassigned, [place] [facility] POCT TEST 2021-06-30 00:00:00 Cecilia Vanessa [facility] DISCLOSURE AND CONSENT, MEDICAL AND SURGICAL PROCEDURES 2021-06-07 05:01:00 Doctor Unassigned, [place] [facility] Encounters Start Date/Time End Date/Time Encounter Type Admission Type Attending [facility] Care Facility Care Department Encounter ID Source 2024-07-01 15:11:59 2024-07-01 15:11:59 Outpatient SFA SFA [id number] Bernardo Ibrahim 2024-02-19 08:15:00 2024-02-19 09:01:59 Outpatient R JARAD STEWARD [facility] [id number] [facility] 2024-02-19 08:15:00 2024-02-19 09:01:59 [facility]URE ENGINE[facility] [id number] 350.1.13.10 4.2.7.2.686 [id number] [facility] 2024-02-15 07:45:00 2024-02-15 07:45:00 Outpatient R JARAD STEAWRD [facility] [id number] [facility] 2023-11-03 15:28:55 2023-11-03 15:28:55 Outpatient CARMEN MORALES [id number] Bernardo Ibrahim 2023-05-09 08:30:00 2023-05-09 08:30:00 Outpatient R LÓPEZ-BELKIS S, CIARRA LÓPEZ-BELKIS S, CIARRA [facility] [id number] [facility] 2023-05-09 08:30:00 2023-05-09 08:30:00 Outpatient R LÓPEZ-BELKIS S, CIARRA LÓPEZ-BELKIS S, CIARRA [facility] [id number] [facility] 2023-05-08 09:00:00 2023-05-08 09:00:00 Outpatient WILMER AWAD CHERYAL [facility] [id number] [facility] 2023-05-02 00:00:00 2023-05-02 00:00:00 Pre Visit Outreach Shanon [facility] ..840.114 350.1.13.10 4.2.7.2.686 [id number] [facility] 2022-10-25 00:00:00 2022-10-25 00:00:00 Patient Secure Msg Lauren [facility] ..840.114 350.1.13.10 4.2.7.2.686 [id number] [facility] 2022-10-24 00:00:00 2022-10-24 00:00:00 Telephone GuyTheresa orlando [facility] ..840.114 350.1.13.10 4.2.7.2.686 [id number] [facility] 2022-10-21 10:15:00 2022-10-21 15:26:07 Outpatient R LAUREN [facility] [id number] [facility] 2022-10-21 10:15:00 2022-10-21 10:30:00 Heading Maker Visit Lab, Mario - Hari [facility] 1.2840.114 350.1.13.10 4.2.7.2.686 [id number] [facility] 2022-10-02 00:00:00 2022-10-02 00:00:00 Patient Secure Msg Lauren [facility] BUILDING 1.284.114 350.1.13.10 4.2.7.2.686 [id number] [facility] 2022-05-04 10:15:00 2022-05-04 10:30:00 Heading Maker Visit 2, [facility] 1..114 350.1.13.10 4.2.7.2.686 [id number] [facility] 2022-05-04 09:00:00 2022-05-04 09:51:47 Outpatient R LAUREN [facility] [id number] [facility] 2022-05-04 09:00:00 2022-05-04 09:51:47 Office Visit Lauren [facility] BUILDING 1.2840.114 350.1.13.10 4.2.7.2.686 [id number] [facility] 2022-05-04 00:00:00 2022-05-04 00:00:00 Orders Only Doctor Unassigned, [place] [facility] 1.20.114 350.1.13.10 4.2.7.2.686 [id number] [facility] 2021-07-06 00:00:00 2021-07-06 00:00:00 Telephone Cecilia Vanessa [facility] 1.284.114 350.1.13.10 4.2.7.2.686 [id number] [facility] 2021-06-30 15:30:00 2021-06-30 16:50:08 Office Visit Cecilia Vanessa [facility] 1.84.114 350.1.13.10 4.2.7.2.686 [id number] [facility] 2021-06-30 15:30:00 2021-06-30 16:50:08 Outpatient R OTF CECILIA [facility] [id number] [facility] 2021-06-30 15:30:00 2021-06-30 15:30:00 Outpatient R OTF CECILIA [facility] [id number] [facility] 2021-06-30 15:30:00 2021-06-30 15:30:00 Outpatient R VANESSA CECILIA [facility] [id number] [facility] 2021-06-30 00:00:00 2021-06-30 00:00:00 Orders Only Doctor Unassigned, [place] [facility] 1.84.114 350.1.13.10 4.2.7.2.686 [id number] [facility] 2021-06-07 08:00:00 2021-06-07 08:29:42 Outpatient R VANESSA CECILIA [facility] [id number] [facility] 2021-06-07 08:00:00 2021-06-07 08:29:42 Office Visit Cecilia Vanessa [facility] 1.284.114 350.1.13.10 4.2.7.2.686 [id number] [facility] 2021-06-07 08:00:00 2021-06-07 08:29:42 Outpatient R OTF CECILIA [facility] [id number] [facility] 2021-06-07 00:00:00 2021-06-07 00:00:00 Orders Only Doctor Unassigned, [place] [facility] 1.2840.114 350.1.13.10 4.2.7.2.686 [id number] [facility] 2021-05-05 00:00:00 2021-05-05 00:00:00 Patient Secure Msg Doctor Unassigned, [place] [facility] 1.2.114 350.1.13.10 4.2.7.2.686 [id number] [facility] 2021-05-04 00:00:00 2021-05-04 00:00:00 Case Management Theresa Aguilar [facility] 1..114 350.1.13.10 4.2.7.2.686 [id number] [facility] 2021-05-04 00:00:00 2021-05-04 00:00:00 Case Management Theresa [facility]ilar [facility] 1..114 350.1.13.10 4.2.7.2.686 [id number] [facility] 2021-05-03 10:00:00 2021-05-03 10:00:00 Outpatient R THERESA AGUILAR [facility] [id number] [facility] 2021-05-03 10:00:00 2021-05-03 10:00:00 Heading Maker Visit 2, Adc Lab Lauren Theresa [facility] 1.84.114 350.1.13.10 4.2.7.2.686 [id number] [facility] 2021-05-03 09:00:00 2021-05-03 09:42:25 Office Visit Theresa Aguilar [facility] 1.2.840.114 350.1.13.10 4.2.7.2.686 [id number] [facility] 2021-05-03 09:00:00 2021-05-03 09:42:25 Outpatient THERESA DON [facility] [id number] [facility] 2021-05-03 00:00:00 2021-05-03 00:00:00 Orders Only Doctor Unassigned, [place] [facility] 1.2.840.114 350.1.13.10 4.2.7.2.686 [id number] [facility] 2020-12-07 15:02:21 2020-12-07 15:27:48 Office Visit Theresa Aguilar [facility] 1.2.840.114 350.1.13.10 4.2.7.2.686 [id number] [facility] 2020-12-07 15:00:00 2020-12-07 15:00:00 Outpatient Lana AGUILAR THERESA [facility] [id number] [facility] 2020-06-18 13:30:00 2020-06-18 13:30:00 Outpatient CECILIA WAGONER [facility] [id number] [facility] 2020-04-30 09:30:00 2020-04-30 09:30:00 Outpatient Lana AGUILAR THERESA [facility] [id number] [facility] Results Test Description Test Time Test Comments Results Result Co mments Source [facility] Notes Date/Time Note Provider Source 2022-11-07 14:28:23 Formatting of this n ote might be different from the original. No more questions or concerns. LORENA BARBOZA RN 11/07/2022 2:28 PM Lorena Barboza RN [facility] 2022-10-25 09:46:14 Formatting of this n ote might be different from the original. Name and verified. Pt advised of results and plan of care as stated below per provider. HSV 1 + HSV II neg Explained to pt the difference between 1 and II. Pt verbalized understanding. LORENA BARBOZA RN 10/25/2022 9:47 AM Lorena Barboza RN [facility] 2022-10-24 15:06:00 Formatting of this n ote might be different from the original. Pt returning call to clinic regarding her lab results. If a nurse could call them back Guanakito Hutchison [facility] 2022-10-21 10:15:00 Formatting of this n ote is different from the original. Images from the original note were not included. Venipuncture collection performed by clean technique on the right anticubitus. Total of 1 attempts were made. Slight pressure and a bandage/dressing were applied to the site(s). The patient experienced no complications. The following specimens were processed according to instructions and [facility] per lab order on today: LT BLUE SST 1 RED LAV PPT DK GREEN (LiHep) DK GREEN (SodH) WAGNER DK BLUE (K2) DK BLUE (S) ACD Blood Culture NIPT/NTD [facility]
[2024-07-03] MEDS ORDERED: CEFTRIAXONE 1000 MG/VIAL ONE (19:53)
[2024-07-03 20:13] LABS: Absolute Lymphocytes (CBC) 0.7 K/uL (0.7-4.9); Absolute Monocytes 0.7 K/uL (0.1-1.3); Absolute Neutrophil 11.9 K/uL (1.8-8.0); Basophils % 0.2 % (0-1.3); Hematocrit 30.3 % (36.0-45.0); Hemoglobin 10.3 g/dL (12.0-15.0); Lymphocytes % 5.5 % (15.3-44.8); MCH 29.1 pg (27.0-35.0); MCHC 34.1 g/dL (32.0-36.0); MCV 85.3 fL (80-100); MPV 8.6 fL (7.6-11.3); Monocytes % 5.4 % (3.3-12.3); Neutrophils % 88.9 % (41.7-73.7); Platelets 244 thou/uL (152-406); RBC Red Blood Cell Count 3.55 M/uL (3.86-4.86)
[2024-07-03 20:15] LABS: PT Prothrombin Time 16.3 SECONDS (10-13.0); PTT, Activated Partial Thromb 34.9 SECONDS (27.2-37.4); Protime INR 1.46
[2024-07-03 20:19] LABS: Specific Gravity 1.018 (1.005-1.030); Sqamous Epithelial <5 /HPF (None Seen); Urine Bacteria <20 /HPF (<20); Urine Bilirubin NEGATIVE (Negative); Urine Blood 1+ (Negative); Urine Clarity Turbid (Clear); Urine Color Yellow (Yellow); Urine Crystals Unidentified Few /HPF (None Seen); Urine Culture Reflex Order REFLEXED; Urine Glucose NEGATIVE (Negative); Urine Ketones NEGATIVE (Negative); Urine Microscopic Reflex YN ORDER UMIC; Urine Nitrite NEGATIVE (Negative); Urine Protein 2+ (Negative); Urine Urobilinogen 3+ (Normal); Urine WBC 20-50 /HPF (<5); Urine pH 7.5 (5.0-7.0)
[2024-07-03 20:22] LABS: Albumin 3.1 g/dL (3.4-5.0); Albumin/Globulin Ratio 0.7 (1.1-1.8); Anion Gap 10.5 mEq/L (5.0-15.0); Bilirubin Total 0.8 mg/dL (0.2-1.0); Globulin 4.4 g/dL (2.3-3.5); Potassium 3.5 mEq/L (3.5-5.1); Protein, Total 7.5 g/dL (6.4-8.2)
--- NOTE | 2024-07-03 21:34 | EDPHYS ---
Physician Documentation [facility] Name: Carla Watt Age: 33 yrs Sex: Female : 1990 Arrival Date: 07/03/2024 Time: 18:47 Bed 17 Private MD: ED Physician Drew Abdullahi HPI: 07/03 21:33 This 33 yrs old Female presents to ER via Ambulatory with complaints of Flank ms3 Pain, Body aches. 21:33 33-year-old female with past medical history of asthma presents to the emergency ms3 department for dysuria and urinary frequency that began on . Patient states she was seen in clinic and given nitrofurantoin which she began on Monday. Patient states she is currently experiencing chills, headache, left flank pain and 1 episode of diarrhea. Patient states her discomfort is an 8/10.. Historical: - Allergies: 07/04 08:00 No Known Allergies; aa5 - PMHx: 07/03 19:34 Asthma; kj2 - PSHx: 07/04 08:00 hernia; aa5 - Immunization history:: Adult Immunizations unknown. - Infectious Disease History:: Denies. - Social history:: Smoking status: Patient denies any tobacco usage or history of. ROS: 07/03 21:33 Cardiovascular: Negative for chest pain, and palpitations. Respiratory: Negative for ms3 shortness of breath, cough, wheezing, and pleuritic chest pain, Abdomen/GI: Negative for abdominal pain, nausea, vomiting, diarrhea, and constipation, Skin: Negative for injury, rash, and discoloration, Constitutional: Positive for body aches, chills, fever, Back: Positive for flank pain, on the left, Exam: 21:33 Constitutional: This is a well developed, well nourished patient who is awake, alert, ms3 and in no acute distress. Cardiovascular: Regular rate and rhythm with a normal S1 and S2. No gallops, murmurs, or rubs. Normal PMI, no JVD. No pulse deficits. Respiratory: Lungs have equal breath sounds bilaterally, clear to auscultation and percussion. No rales, rhonchi or wheezes noted. No increased work of breathing, no retractions or nasal flaring. Abdomen/GI: Soft, non-tender, with normal bowel sounds. No distension or tympany. No guarding or rebound. No evidence of tenderness throughout. 21:33 Back: CVA tenderness, that is mild, is noted on the left, Vital Signs: 19:31 BP 124 / 64; Pulse 121; Resp 20; Temp 99.6; Pulse Ox 96% on R/A; Weight 72.12 kg; kj2 Height 5 ft. 4 in. ; Pain 8/10; 20:42 BP 106 / 69; Pulse 121; Resp 18; Pulse Ox 100% on R/A; kj2 21:45 BP 98 / 59; Pulse 126; Resp 20; Pulse Ox 100% ; kj2 19:31 Body Mass Index 27.29 (72.12 kg, 162.56 cm) kj2 19:31 Pain Scale: Adult kj2 MDM: 19:21 Medical Screening Exam initiated ms3 21:33 Differential diagnosis: pyelonephritis, UTI. Data reviewed: vital signs, nurses notes, ms3 lab test result(s), radiologic studies, and as a result, I will admit patient. Consideration of Admission/Observation Patient was admitted/placed on observation. Management of patient was discussed with the following: Hospitalist: Dr Moreira. I considered the following discharge prescriptions or medication management in the emergency department Medications were administered in the Emergency Department. See MAR. Counseling: I had a detailed discussion with the patient and/or guardian regarding the historical points, exam findings, and any diagnostic results supporting the discharge/admit diagnosis, lab results, the need for outpatient follow up, to return to the emergency department if symptoms worsen or persist or if there are any questions or concerns that arise at home. Special discussion: I discussed with the patient/guardian in detail that at this point there is no indication for admission to the hospital. It is understood, however, that if the symptoms persist or worsen the patient needs to return immediately for re-evaluation. ED course: Discussed labs and necessity for admission with patient. Patient understands agrees with plan. All questions were answered.. 07/03 19:19 Order name: Blood Culture Adult (2) ms3 07/03 19:19 Order name: CBC with Diff; Complete Time: 22:13 ms3 07/03 19:19 Order name: CMP; Complete Time: 20:33 ms3 07/03 19:19 Order name: Lactate w/ 2H reflex if indic.; Complete Time: 21:29 ms3 07/03 19:19 Order name: Protime (+inr); Complete Time: 20:33 ms3 07/03 19:19 Order name: Ptt, Activated; Complete Time: 20:33 ms3 07/03 19:19 Order name: Urinalysis w/ reflexes; Complete Time: 20:33 ms3 07/03 19:30 Order name: Test, Serum; Complete Time: 21:29 kj2 07/03 20:22 Order name: Glucose, Ancillary Testing; Complete Time: 20:33 EDMS 07/03 20:23 Order name: Urine Culture EDMS 07/03 22:01 Order name: CBC Smear Scan; Complete Time: 22:13 EDMS 07/03 22:17 Order name: Basic Metabolic Panel EDMS 07/03 22:17 Order name: Basic Metabolic Panel; Complete Time: 09:18 EDMS 07/03 22:17 Order name: CBC with Automated Diff EDMS 07/03 22:17 Order name: CBC with Automated Diff; Complete Time: 09:18 EDMS 07/04 00:13 Order name: Glucose, Ancillary Testing; Complete Time: 09:18 EDMS 07/03 19:19 Order name: Accucheck; Complete Time: 20:16 ms3 07/03 19:19 Order name: Cardiac monitoring; Complete Time: 19:59 ms3 07/03 19:19 Order name: IV Saline Lock - Large Bore; Complete Time: 19:59 ms3 07/03 19:19 Order name: Labs collected and sent; Complete Time: 19:59 ms3 07/03 19:19 Order name: O2 Per Protocol; Complete Time: 19:59 ms3 07/03 19:19 Order name: O2 Sat Monitoring; Complete Time: 19:59 ms3 07/03 19:19 Order name: Vital Signs; Complete Time: 19:59 ms3 07/03 20:09 Order name: Misc. Order: RECOLLECT LACTATE; Complete Time: 21:01 rv1 Administered Medications: 19:58 Drug: Rocephin IV 1 grams IV at calculated rate once; Given slow IV push per pharmacy kj2 instructions Route: IV; Rate: calculated rate; Site: right antecubital; 22:15 Follow up: IV Status: Completed infusion; IV Intake: 10ml kj2 22:22 Drug: Ketorolac IVP 10 mg 10 mg IVP once Route: IVP; Site: right antecubital; kj2 Disposition Summary: 07/03/24 21:33 Hospitalization Ordered Notes: Hospitalization Status: Inpatient Admission ms3 Provider: Josh Moreira ms3 Condition: Stable ms3 Problem: new ms3 Symptoms: are unchanged ms3 Bed/Room Type: Standard ms3 Location: Telemetry/MedSurg (Inpatient)(07/04/24 10:54) 6 Room Assignment: 405(07/04/24 10:54) [facility] Diagnosis - Pyelonephritis acute ms3 - Sepsis without end organ dysfunction ms3 Forms: - Medication Reconciliation Form ms3 - SBAR form ms3 - Leadership Thank You Letter ms3 Signatures: Dispatcher [employer] EDAnaya Lobo, RN RN aa5 Drew Abdullahi, DO ms3 Latisha Ochoa RN RN vc1 Radha Almendarez rv1 Deneen Simon 6 Selin Killian RN RN kj2 Corrections: (The following items were deleted from the chart) 22:01 21:33 Telemetry/MedSurg (Inpatient) ms3 vc1 22:01 21:33 ms3 vc1 07/04 10:14 04 22:01 [facility] ER HOLD vc1 6 07/04 10:14 07/03 22:01 ERHOLD- vc1 6 07/04 10:18 10:14 Telemetry/MedSurg (Inpatient) 6 aa5 10:18 10:14 [facility] aa5 10:54 10:18 [facility] ER HOLD aa5 bc6 10:54 10:18 ERHOLD- aa5 6
--- NOTE | 2024-07-03 21:34 | ER ---
Nurse's Notes [facility] Name: Carla Watt Age: 33 yrs Sex: Female : 1990 Arrival Date: 07/03/2024 Time: 18:47 Bed 17 Private MD: Diagnosis: Pyelonephritis acute;Sepsis without end organ dysfunction Presentation: 07/03 19:31 Chief complaint: Patient states: left side back since pain Patrick, chills. UTI kj2 symptoms. Coronavirus screen: Client denies travel out of the [place] in the last 14 days. Ebola Screen: No symptoms or risks identified at this time. Initial Sepsis Screen: Does the patient meet any 2 criteria? HR > 90 bpm. Does the patient have a suspected source of infection? No. Patient's initial sepsis screen is negative. Risk Assessment: Do you want to hurt yourself or someone else? Patient reports no desire to harm self or others. Onset of symptoms was July 03, 2024. 19:31 Method Of Arrival: Ambulatory [facility] 19:31 Acuity: YFN 2 kj2 Triage Assessment: 19:35 General: Appears in no apparent distress. Behavior is calm, cooperative. Pain: kj2 Complains of pain in left side of back Pain currently is 8 out of 10 on a pain scale. Neuro: Level of Consciousness is awake, alert, obeys commands, Oriented to person, place, time, situation. Cardiovascular: Patient's skin is warm and dry. Respiratory: Airway is patent Respiratory effort is even, unlabored. GI: No signs and/or symptoms were reported involving the gastrointestinal system. : Reports dark urine. Historical: - Allergies: 07/04 08:00 No Known Allergies; aa5 - PMHx: 07/03 19:34 Asthma; kj2 - PSHx: 07/04 08:00 hernia; aa5 - Immunization history:: Adult Immunizations unknown. - Infectious Disease History:: Denies. - Social history:: Smoking status: Patient denies any tobacco usage or history of. Screenin/09 19:36 [facility] ED Fall Risk Assessment (Adult) History of falling in the last 3 months, kj2 including since admission No falls in past 3 months (0 pts) Confusion or Disorientation No (0 pts) Intoxicated or Sedated No (0 pts) Impaired Gait No (0 pts) Mobility Assist Device Used No (0 pt) Altered Elimination No (0 pt) Score/Fall Risk Level 0 - 2 = Low Risk Maintained a safe environment, Hourly rounding (assess needs \T\ fall precautionary measures) done. Abuse screen: Denies threats or abuse. Denies injuries from another. Nutritional screening: No deficits noted. Tuberculosis screening: No symptoms or risk factors identified. Assessment: 19:35 General: see triage assessment. kj2 20:42 Reassessment: Patient appears in no apparent distress at this time. Patient and/or kj2 family updated on plan of care and expected duration. Pain level reassessed. Patient is alert, oriented x 3, equal unlabored respirations, skin warm/dry/pink. 21:45 Reassessment: Patient appears in no apparent distress at this time. Patient and/or kj2 family updated on plan of care and expected duration. Pain level reassessed. Patient is alert, oriented x 3, equal unlabored respirations, skin warm/dry/pink. Vital Signs: 19:31 BP 124 / 64; Pulse 121; Resp 20; Temp 99.6; Pulse Ox 96% on R/A; Weight 72.12 kg; kj2 Height 5 ft. 4 in. ; Pain 8/10; 20:42 BP 106 / 69; Pulse 121; Resp 18; Pulse Ox 100% on R/A; kj2 21:45 BP 98 / 59; Pulse 126; Resp 20; Pulse Ox 100% ; kj2 19:31 Body Mass Index 27.29 (72.12 kg, 162.56 cm) kj2 19:31 Pain Scale: Adult kj2 ED Course: 18:50 Patient arrived in ED. mr 18:50 Drew Abdullahi DO is Attending Physician. ms3 19:28 Selin Killian RN is Primary Nurse. kj2 19:34 Triage completed. kj2 19:37 Patient has correct armband on for positive identification. Bed in low position. Call kj2 light in reach. Side rails up X 1. Provided Education on: call light. 21:32 Josh Moreira MD is Hospitalizing Provider. ms3 07/04 00:10 Report given to ARTURO Rose. kj2 07:00 Primary Nurse role handed off by Selin Killian RN rv1 07:00 No provider procedures requiring assistance completed. Patient admitted, IV remains in aa5 place. Administered Medications: 07/03 19:58 Drug: Rocephin IV 1 grams IV at calculated rate once; Given slow IV push per pharmacy kj2 instructions Route: IV; Rate: calculated rate; Site: right antecubital; 22:15 Follow up: IV Status: Completed infusion; IV Intake: 10ml kj2 22:22 Drug: Ketorolac IVP 10 mg 10 mg IVP once Route: IVP; Site: right antecubital; kj2 Medication: 19:37 VIS not applicable for this client. kj2 Intake: 22:15 IV: 10ml; Total: 10ml. kj2 Outcome: 21:33 Decision to Hospitalize by Provider. ms3 07/04 07:00 Admitted to ER Hold. Please see [facility] for further documentation. aa5 07:00 Condition: stable aa5 07:00 Instructed on the need for admit, Demonstrated understanding of instructions, 11:50 Patient left the ED. aa5 Signatures: Alisha Christian, Reg Reg mr Anaya Woodward, RN RN aa5 Drew Abdullahi DO DO ms3 Radha Almendarez rv1 Selin Killian, ARTURO RN kj2
[2024-07-03 22:01] LABS: Blood Morphology Comment NOT SEEN (NOT SEEN); Platelet Estimate ADEQ; White Blood Cell Scan OK (OK)
[2024-07-03] MEDS ORDERED: MORPHINE 2 MG/ML SYR IV PRN (22:13)
[2024-07-03] MEDS ORDERED: ONDANSETRON 4 MG/2 ML VIAL IV PRN (22:13)
--- NOTE | 2024-07-03 22:15 | P.HP ---
Patient History Date of Service: 07/03/24 History of Present Illness: 33-year-old female with a past medical history of asthma presenting with abdominal cramps secondary to pyelonephritis. She began to have chills alongside fevers. This lasted for about 3 days. She went to an outside clinic where they gave her Macrobid. Her pain did not improved and she continued to spike fevers despite being on antipyretics. 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 She denies any illicit drug use. Allergies No Known Allergies Allergy (Verified 12/28/19 07:47) Home Medications: Codeine/APAP [Tylenol W/Codeine #3 tab] 1 tab PO Q4H PRN #40 tab 12/29/19 - Past Medical/Surgical History Diabetic: No -: asthma - Social History Alcohol use: Yes CD- Drugs: No Caffeine use: Yes Review of Systems General: Unremarkable Eyes: Unremarkable ENT: Unremarkable Respiratory: Unremarkable Cardiovascular: Unremarkable Gastrointestinal: Abdominal Pain Genitourinary: Unremarkable Musculoskeletal: Back Pain Integumentary: Unremarkable Neurological: Unremarkable Physical Examination - Physical Exam General: Alert, In no apparent distress HEENT: Atraumatic, Normocephalic Neck: Supple, 2+ carotid pulse no bruit Respiratory: Clear to auscultation bilaterally Cardiovascular: No edema Capillary refill: <2 Seconds Gastrointestinal: Normal bowel sounds Musculoskeletal: No clubbing Integumentary: No rashes Neurological: Normal gait, Normal speech Lymphatics: No axilla or inguinal lymphadenopathy - Studies Laboratory Data (last 24 hrs) 07/03/24 07/03/24 07/03/24 19:35 19:35 19:35 WBC 13.30 H Hgb 10.3 L Hct 30.3 L Plt Count 244 PT 16.3 H INR 1.46 APTT 34.9 Sodium 134 L Potassium 3.5 BUN 11 Creatinine 0.77 Glucose 126 H Total Bilirubin 0.8 AST 17 ALT 22 Alkaline Phosphatase 95 Assessment and Plan - Plan Pyelonephritis Leukocytosis Anemia Vomiting Asthma Urine culture pending, blood cultures pending, continue Rocephin Morphine as needed Tylenol as needed IV Zofran for vomiting DVT prophylaxis with Lovenox - Advance Directives Does patient have a Living Will: No Does patient have a Durable POA for Healthcare: No
[2024-07-03] MEDS ORDERED: KETOROLAC 30 MG/ML INJ ONE (22:18)
[2024-07-03] MEDS: NA CHLORIDE 0.9% 1,000 ML IV SCH (23:00)
[2024-07-03 23:57] VITALS: BMI 27.3
[2024-07-04 05:24] LABS: Absolute Basophils 0.1 K/uL (0-0.5); Absolute Lymphocytes (CBC) 1.1 K/uL (0.7-4.9); Absolute Monocytes 1.1 K/uL (0.1-1.3); Absolute Neutrophil 10.4 K/uL (1.8-8.0); Basophils % 0.4 % (0-1.3); Eosinophils % 0.2 % (0-4.4); Hematocrit 27.4 % (36.0-45.0); Hemoglobin 9.4 g/dL (12.0-15.0); Lymphocytes % 8.6 % (15.3-44.8); MCH 29.3 pg (27.0-35.0); MCHC 34.1 g/dL (32.0-36.0); MPV 8.6 fL (7.6-11.3); Monocytes % 8.5 % (3.3-12.3); Neutrophils % 82.3 % (41.7-73.7); Platelets 214 thou/uL (152-406); RBC Red Blood Cell Count 3.19 M/uL (3.86-4.86); Red Cell Distribution Width 12.9 % (12.1-15.2)
[2024-07-04 05:47] LABS: Anion Gap 10.3 mEq/L (5.0-15.0); Potassium 3.3 mEq/L (3.5-5.1)
[2024-07-04] MEDS ORDERED: FLU (Fluarix Triv) TS24-25(6MOS UP)/PF 45 MCG/0.5 ML Syringe IM ONE (07:30)
[2024-07-04] MEDS ORDERED: NA CHLORIDE 0.9% 100 ML ONE (07:39)
[2024-07-04] MEDS ORDERED: CEFTRIAXONE 2000 MG/VIAL ONE (07:39)
[2024-07-04] MEDS ORDERED: PNEUMOCOCCAL VACCINE 0.5 ML IMVAC ONE (08:00)
[2024-07-04] MEDS: CEFTRIAXONE 2,000 MG in NA CHLORIDE 0.9% 100 ML IV SCH (08:18)
[2024-07-04] MEDS ORDERED: ACETAMINOPHEN 500 MG TAB ONE (08:29)
[2024-07-04] MEDS: ACETAMINOPHEN 500 MG TAB PO PRN (08:39)
[2024-07-04 12:09] VITALS: O2SAT 100
--- NOTE | 2024-07-04 14:49 | P.PN ---
Date of Service: 07/04/24 Subjective: feeling better pain much improved still tachycardic, BP borderline diaphoretic Physical exam GEN: Alert, oriented, NAD HEENT: Normal conjunctiva, sclera anicteric CV: Regular rate and rhythm, no edema ABD: soft, nontender; mild flank tenderness Neuro: Normal speech, normal affect Problem List Pyelonephritis Leukocytosis Anemia Vomiting Asthma failed macrobid outpatient feeling better today, feels pain is much better n/v improved some diaphorsis vitals improving continue rocephin - 2g daily f/u cultures pt reports no cultures sent initially at office VTE: lovenox Code: full Dispo: home, ~1-2 days Time Spent Managing Pts Care (In Minutes): 45
[2024-07-04] MEDS: ENOXAPARIN 40 MG/0.4 ML SQ SCH (17:41)
[2024-07-05 04:17] VITALS: TEMP 98.3
[2024-07-05 06:43] LABS: Absolute Eosinophils 0.1 K/uL (0-0.5); Absolute Lymphocytes (CBC) 1.5 K/uL (0.7-4.9); Absolute Monocytes 0.7 K/uL (0.1-1.3); Absolute Neutrophil 5.4 K/uL (1.8-8.0); Basophils % 0.4 % (0-1.3); Hematocrit 26.2 % (36.0-45.0); Lymphocytes % 19.8 % (15.3-44.8); MCH 29.6 pg (27.0-35.0); MCHC 34.2 g/dL (32.0-36.0); MCV 86.5 fL (80-100); MPV 8.6 fL (7.6-11.3); Neutrophils % 69.8 % (41.7-73.7); Platelets 221 thou/uL (152-406); RBC Red Blood Cell Count 3.03 M/uL (3.86-4.86); Red Cell Distribution Width 13.1 % (12.1-15.2)
[2024-07-05 06:57] LABS: Anion Gap 7.4 mEq/L (5.0-15.0); Magnesium 2.2 mg/dL (1.6-2.4); Potassium 3.4 mEq/L (3.5-5.1)
[2024-07-05 08:05] VITALS: BP 112/70
--- NOTE | 2024-07-05 12:59 | P.DS ---
Admission Date: 07/03/24 Discharge Date: 07/05/24 Disposition: ROUTINE DISCHARGE Discharge Condition: GOOD Brief History of Present Illness: 33-year-old female with a past medical history of asthma presenting with abdominal cramps secondary to pyelonephritis. She began to have chills alongside fevers. This lasted for about 3 days. She went to an outside clinic where they gave her Macrobid. Her pain did not improved and she continued to spike fevers despite being on antipyretics. 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 She denies any illicit drug use. Hospital Course: 33-year-old female with minimal past medical history presenting with flank pain found to have pyelonephritis. Upon admission she was placed on IV antibiotics. Her clinical condition improved over the course of her stay. Her white blood cell count returned to normal. She is tolerating food and drink. She is voiding and having regular bowel movements. She will follow-up with her primary care physician upon discharge. She is medically optimized for discharge Vital Signs/Physical Exam: Temp Pulse Resp BP Pulse Ox 98.3 F 84 16 112/70 99 07/05/24 12:00 07/05/24 12:00 07/05/24 12:00 07/05/24 08:00 07/05/24 12:00 General: Alert, In no apparent distress HEENT: Atraumatic, Normocephalic Neck: Supple Respiratory: Clear to auscultation bilaterally Cardiovascular: No edema Capillary refill: <2 Seconds Gastrointestinal: Normal bowel sounds Musculoskeletal: No clubbing Integumentary: No rashes Neurological: Normal gait Lymphatics: No axilla or inguinal lymphadenopathy External genitalia: No edema Laboratory Data at Discharge: WBC 7.70 thou/uL (4.3-10.9) 07/05/24 06:24 Hgb 9.0 g/dL (12.0-15.0) L 07/05/24 06:24 Hct 26.2 % (36.0-45.0) L 07/05/24 06:24 Plt Count 221 thou/uL (152-406) 07/05/24 06:24 PT 16.3 SECONDS (10-13.0) H 07/03/24 19:35 INR 1.46 07/03/24 19:35 APTT 34.9 SECONDS (27.2-37.4) 07/03/24 19:35 Sodium 139 mEq/L (136-145) 07/05/24 06:24 Potassium 3.4 mEq/L (3.5-5.1) L 07/05/24 06:24 BUN 6 mg/dL (7-18) L 07/05/24 06:24 Creatinine 0.54 mg/dL (0.55-1.02) L 07/05/24 06:24 Glucose 103 mg/dL (74-106) 07/05/24 06:24 Magnesium 2.2 mg/dL (1.6-2.4) 07/05/24 06:24 Total Bilirubin 0.8 mg/dL (0.2-1.0) 07/03/24 19:35 AST 17 U/L (15-37) 07/03/24 19:35 ALT 22 U/L (13-56) 07/03/24 19:35 Alkaline Phosphatase 95 U/L (45-117) 07/03/24 19:35 Home Medications: NK [No Home Meds] 07/04/24 Followup: NONE,NONE [Primary Care Provider] -
== END 2024-07-05 13:38 | disposition home or self-care (01) | DRG 872 ==
LOC: ER 18:47 → ERHOLD 22:13 → 4TH 07-04 11:21
PROVIDERS: ADMIT Family Medicine; ATTEND Family Medicine
DX: A41.9 Sepsis, unspecified organism (principal); N10 Acute pyelonephritis; J45.909 Unspecified asthma, uncomplicated; D64.9 Anemia, unspecified
CPT/HCPCS: 36415; 80048; 80053; 81001; 82947; 83605; 83735; 84703; 85025; 85610; 85730; 87040; 87086; 87088; 96365; 96366; 96375; 99285; J0696; J1650; J7030